=== PATIENT | female | born 1980 | race Caucasian/White ===

== ENCOUNTER 2024-11-26 09:50 | Emergency (ER) | payer BC ==
--- OUTSIDE RECORDS SUMMARY | 2024-11-26 09:56 | XMS REPORT | Continuity of Care Document ---
Author Name Unknown Address [address] [facility]. [address] [place] [address] [facility] Address [address] [facility]. [address] [place] [address] Care Team Providers Care Upholstery Cutter Name Role Phone ARCELIA LEES Primary Care Physician Unavailab ARCELIA Juan Attending Clinician Unavailable Arcelia Lees MD Attending Clinician [phone] MYAH KOCH Attending Clinician Unavailable Myah Guadalupe Attending Clinician [phone] Unknown, Attending Attending Clinician Unavailab VALERIE Sahu Attending Clinician UnavailValerie Fonseca Attending Clinician [phone] ELY JOY Attending Clinician Unavailable ELY JOY Attending Clinician Unavailable Arcelia Lees MD Attending Clinician [phone] VINI RAND Attending Clinician Yesica Vini Wilson MD Attending Clinician SARANYA MORGAN Attending Clinician Unavailable Saranya Freeman Attending Clinician [phone] Juanis Steele PA-C Attending Clinician [phone] JUANIS STEELE Attending Clinician Unavailable Ezra Cruz MD Attending Clinician [phone] EZRA CRUZ Attending Clinician Unavail able LE DOUX, ELBERT Attending Clinician Unavailable Le Doux FNPC, Elbert Attending Clinician [phone] Unknown, Attending Attending Clinician Unavailab le Doctor Unassigned, [place] Attending Clinician U Dago Umaña MD Attending Clinician [phone] DAGO PRIEST Attending Clinician Unavailable KVNGCYNTHIA GONGORA Attending Clinician Unavailab ABHISHEK Vuong Attending Clinician Unavailabl e Reilly PREMIUM CANCELLATION CLERK, Abhishek Attending Clinician [phone] Cynthia Calderon DNP Attending Clinician [phone] Maribell Veras RN Attending Clinician Unavaila ble Only, [facility] Main Test Attending Clinician Unavaila Summer Gonsalves MD Attending Clinician [phone] SUMMER TEMPLE Attending Clinician Unavailable Only, Laura Uc Test Attending Clinician Unavailpacheco almanzar Nurse, Laura Cbc Pedi Attending Clinician Unavaila ble Cochran PREMIUM CANCELLATION CLERK, Love Attending Clinician [phone] UNKNOWN, ATTENDING Attending Clinician Unavailab le Only, [facility] Uc Test Attending Clinician UnavailLINSEY Porter Attending Clinician Yesica vailable Linsey Chiu MD Attending Clinician Fco CLOTH EXAMINER, Francoise Houston Attending Clinician [phone] Care, Laura Urgent Attending Clinician Unavailable Clari MCGINNIS, Leida Carrera Attending Clinician [phone] Srinath WORKMAN, Amelia Wallace Attending Clinician Unavaila BLAINE Paez Attending Clinician Unav ailable Cynthia FARLEY, Blaine Attending Clinician + ARCELIA LEES Admitting Clinician Unavailable ELY JOY Admitting Clinician Unavailable EZRA CRUZ Admitting Clinician Unavail able DAGO PRIEST Admitting Clinician Unavailable Dago Priest MD Admitting Clinician [phone] Payers Payer Name Policy Type Policy Number Effective Date Expirati on Date Source [facility] [id number] 2017 00:00:00 Problems Condition Name Condition Details Condition Category Status Onset Date Resolution Date Last Treatment Date Treating Clinician Comments Source S/P laparoscop ic hysterecto my S/P laparoscop ic hysterecto my Disease Active 6-30 00:00: 00 [facility] Obesity (BMI 30-39.9) Obesity (BMI 30-39.9) Disease Active 6-29 00:00: 00 [facility] Abnormal uterine bleeding (AUB) Abnormal uterine bleeding (AUB) Disease Active 6-15 00:00: 00 Overview: Formattin g of this note might be different from the original. Added automatic ally from request for surgery [id number] 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 Allergic rhinitis Allergic rhinitis Disease Active 03-18 00:00: 00 [facility] Diabetes mellitus Diabetes mellitus Disease Active 03-18 00:00: 00 [facility] Vitamin D deficiency , unspecifie d Vitamin D deficiency , unspecifie d Disease Active 03-18 00:00: 00 [facility] Nicotine dependence Nicotine dependence Disease Active 03-18 00:00: 00 Overview: Formattin g of this note might be different from the original. -Strongly encourage d to stop smoking [facility] Menorrhagi a Menorrhagi a Disease Active 03-18 00:00: 00 [facility] FHx: melanoma FHx: melanoma Disease Active 2017-10 00:00: 00 [facility] H/O basal cell carcinoma excision H/O basal cell carcinoma excision Disease Active 2017-10 00:00: 00 [facility] Idiopathic peripheral neuropathy Idiopathic peripheral neuropathy Disease Active 2017-10 00:00: 00 [facility] Peripheral neuralgia Peripheral neuralgia Disease Active 2017-10 00:00: 00 [facility] Hyperlipid emia, unspecifie d hyperlipid emia type Hyperlipid emia, unspecifie d hyperlipid emia type Disease Active 12-25 00:00: 00 [facility] Type 2 diabetes mellitus without complicati on, without long-term current use of insulin Type 2 diabetes mellitus without complicati on, without long-term current use of insulin Disease Active 11-23 00:00: 00 [facility] Acne, unspecifie d acne type Acne, unspecifie d acne type Disease Active 11-23 00:00: 00 [facility] Other specified hypothyroi dism Other specified hypothyroi dism Disease Active 11-23 00:00: 00 [facility] Allergic rhinitis due to pollen, unspecifie d chronicity , unspecifie d seasonalit y Allergic rhinitis due to pollen, unspecifie d chronicity , unspecifie d seasonalit y Disease Active 11-23 00:00: 00 [facility] Gastroesop hageal reflux disease, esophagiti s presence not specified Gastroesop hageal reflux disease, esophagiti s presence not specified Disease Active 11-23 00:00: 00 [facility] Snapping jaw Snapping jaw Disease Resolve d 5-28 00:00: 00 2020-09-20 00:00:00 2020-09-20 08:27:37 [facility] Smoker Smoker Disease Resolve d 11-23 00:00: 00 2018-09-25 00:00:00 2018-09-25 08:55:37 [facility] Allergies, Adverse Reactions, Alerts Allergy Name Allergy Type Status Severity Reaction(s) Onset Date Inactive Date Treating Clinician Comments Source Metformi n Propensi ty to adverse reaction s Active Unknown - See comments 2022-10 00:00: 00 [facility] Pertussi s Vaccines Propensi ty to adverse reaction s Active Unknown - See comments 2022-10 00:00: 00 [facility] PERTUSS S VACCINES Drug Class Active High Unknown-Cmnt 2022-10 00:00: 00 [facility] METFORMI N DRUG INGREDI Active Unknown-Cmnt 2022-10 00:00: 00 [facility] METFORMI N DRUG INGREDI Active Diarrhea 03-26 00:00: 00 [facility] Metformi n Propensi ty to adverse reaction s Active Diarrhea 03-26 00:00: 00 [facility] Pertussi s Vaccines Drug Allergy Active Anaphylaxis [facility] NO KNOWN ALLERGIE S Drug Class Active [facility] Pertussi s Vaccines Drug Allergy Active Anaphylaxis [facility] Social History Social Habit Start Date Stop Date Quantity Comments Source [facility] Alcoholic beverage intake 2024-10-20 00:00:00 2024-10-20 00:00:00 Current non-drinker of alcohol (finding) [facility] Tobacco use and exposure 2024-07-21 00:00:00 2024-07-21 00:00:00 Former smokeless tobacco user [facility] History of Social function 2024-07-21 00:00:00 2024-07-21 00:00:00 [facility] Alcohol intake 2024-01-03 00:00:00 2024-01-03 00:00:00 Current non-drinker of alcohol (finding) [facility] Exposure to SARS-CoV-2 (event) 2022-12-23 00:00:00 2023-01-02 08:31:00 Not sure [facility] Tobacco Comment 2022-05-02 00:00:00 2022-05-02 00:00:00 still vaping intemittently [facility] History of tobacco use 2018-06-26 00:00:00 Passive smoker [facility] Sex assigned at 1980 00:00:00 1980 00:00:00 [facility] Smoking Status Start Date Stop Date Source Tobacco smoking consumption unknown [facility] Ex-smoker 2024-07-21 00:00:00 2024-07-21 00:00:00 [facility] Medications Ordered Medication Name Filled Medication Name Start Date Stop Date Current Medication? Ordering Clinician Indication Dosage Frequency Signature (SIG) Comments Components Source hydrOXYzine 25 mg tablet 2023-10 00:00: 00 Yes [id number] 25mg Take 1 tablet by mouth every 8 (eight) hours as needed for Itching. [facility] triamcinolo ne acetonide 0.1 % cream 2023-10 00:00: 00 Yes [id number] Apply to area(s) 2 (two) times daily. [facility] levothyroxi ne 88 mcg tablet 2023-10 00:00: 00 Yes [id number] 88ug Take 1 tablet by mouth every morning. [facility] dulaglutide (TRULICITY) 1.5 mg/0.5 mL PnIj 07-21 00:00: 00 Yes [id number] 1.5mg inject 1 Pen under the skin weekly. [facility] HYDROcodone -acetaminop hen (NORCO 5) 5-325 mg tablet 1 tablet 05-09 20:00: 00 05-09 19:04 :00 No 1{tbl} 1 tablet, Oral, ONCE, 1 dose, On Sun05/09/24 at 1500, ARGELIA [facility] ibuprofen (IBU) tablet 600 mg 05-09 19:30: 00 05-09 21:05 :00 No 600mg 600 mg, Oral, ONCE, 1 dose, On Sun05/09/24 at 1430, ARGELIA [facility] dulaglutide (TRULICITY) 0.75 mg/0.5 mL PnIj 02-11 00:00: 00 07-21 00:00 :00 No [id number] .75mg inject 1 Pen under the skin weekly. [facility] dulaglutide (TRULICITY) 0.75 mg/0.5 mL PnIj 02-10 00:00: 00 02-11 00:00 :00 No [id number] .75mg inject 1 Pen under the skin weekly. [facility] atorvastati n 20 mg tablet 3-14 00:00: 00 Yes [id number] 20mg Take 1 tablet by mouth at bedtime. [facility] levothyroxi ne 75 mcg tablet 01-02 00:00: 00 07-24 00:00 :00 No [id number] 75ug Take 1 tablet by mouth every morning. [facility] dulaglutide (TRULICITY) 1.5 mg/0.5 mL PnIj 01-02 00:00: 00 02-11 00:00 :00 No [id number] 1.5mg inject 1 Pen under the skin weekly. [facility] bromphenira mine-pseudo ephedrine-D M (BROMFED DM) 2-30-10 mg/5 mL syrup 12-07 00:00: 00 01-02 00:00 :00 No [id number] Take 5 to 10 ml po qid prn cough and congestion [facility] methylPREDN ISolone 4 mg tablets 12-07 00:00: 00 12-14 05:59 :00 No [id number] 84mg Take 21 tablets by mouth SEE-INSTRU CTIONS for 6 days. follow package directions [facility] glipiZIDE 5 mg tablet 11-28 00:00: 00 07-21 00:00 :00 No [id number] 5mg Take 1 tablet by mouth in the morning. [facility] dulaglutide (TRULICITY) 0.75 mg/0.5 mL PnIj 11-28 00:00: 00 01-02 00:00 :00 No [id number] INJECT THE CONTENTS OF ONE PEN SUBCUTANEO USLY WEEKLY DIRECTED [facility] atorvastati n 20 mg tablet 11-28 00:00: 00 01-02 00:00 :00 No [id number] 20mg Take 1 tablet by mouth at bedtime. [facility] levothyroxi ne 75 mcg tablet 2- 00:00: 00 01-02 00:00 :00 No [id number] 75ug Take 1 tablet by mouth every morning. [facility] cranberry fruit extract (CRANBERRY CONCENTRATE ORAL) 10-25 11:50: 48 Yes Take by mouth. [facility] amoxicillin -clavulanat e (AUGMENTIN) 875-125 mg per tablet 10-25 00:00: 00 11-05 05:59 :00 No [id number] 1{tbl} Take 1 tablet by mouth in the morning and 1 tablet in the evening. Do all this for [address] [facility] phenazopyri dine (PYRIDIUM) 200 mg tablet 10-25 00:00: 00 10-28 05:59 :00 No [id number] 200mg Take 1 tablet by mouth in the morning and 1 tablet at noon and 1 tablet in the evening. Take after meals. Do all this for [address] [facility] TRULICITY 0.75 mg/0.5 mL PnIj 10-23 00:00: 00 11-28 00:00 :00 No [id number] INJECT THE CONTENTS OF ONE PEN SUBCUTANEO USLY WEEKLY DIRECTED [facility] fluticasone propionate 50 mcg/actuati on nasal spray 2022-10 00:00: 00 10-25 00:00 :00 No [id number] 1{spray } Use 1 Paguate in each nostril in the morning. [facility] benzonatate 200 mg capsule 2022-10 00:00: 00 10-19 05:59 :00 No [id number] 200mg Take 1 capsule by mouth 3 (three) times daily as needed for Cough for up to [address] [facility] oseltamivir 75 mg capsule 2022-10 00:00: 00 10-14 05:59 :00 No [id number] 75mg Take 1 capsule by mouth in the morning and 1 capsule in the evening. Do all this for [address] [facility] calcium carbonate/v itamin D3 (VITAMIN D-3 ORAL) 2022-10 09:52: 52 Yes Take by mouth. [facility] cetirizine 10 mg tablet 2022-10 09:52: 51 Yes [id number] 10mg Take 10 mg by mouth daily. [facility] cranberry fruit extract (CRANBERRY CONCENTRATE ORAL) 2022-10 09:52: 51 Yes Take by mouth. [facility] cefTRIAXone (ROCEPHIN) 1,000 mg in NaCl 0.9% (NS) 100 mL MINI-BAG 2022-10 02:30: 00 10-04 03:33 :00 No 1000mg 1,000 mg, IV Piggyback, ONCE, 1 dose, On Sun10/03/23 at 2030, Administer over 30 Minutes, 100 mL
Reas on for Anti-Infec tive: Documented Infection< br>Documen elvis Infection Site: Urine
D uration of Therapy: Other (see Comments) [facility] ketorolac (TORADOL) injection 30 mg 2022-10 02:15: 00 10-04 01:38 :00 No 30mg 30 mg, Slow IV Push, ONCE, 1 dose, On Sun10/03/23 at 2015, Routine [facility] NaCl 0.9% (NS) bolus infusion 1,000 mL 2022-10 01:30: 00 10-04 03:00 :00 No 1000mL at 999 mL/hr, 1,000 mL, IV Infusion, ONCE, 1 dose, On Sun10/03/23 at 1930, STAT [facility] metoclopram kristina HCl (REGLAN) injection 10 mg 2022-10 01:30: 00 10-04 01:41 :00 No 10mg 10 mg, Slow IV Push, ONCE, 1 dose, On Sun10/03/23 at 1930, ARGELIA [facility] cefdinir 300 mg capsule 2022-10 00:00: 00 10-25 00:00 :00 No [id number] 300mg Take 1 capsule by mouth every 12 (twelve) hours. [facility] metoclopram kristina HCl 10 mg tablet 2022-10 00:00: 00 10-25 00:00 :00 No [id number] 10mg Take 1 tablet by mouth every 6 (six) hours as needed for Nausea and Vomiting (N/V). [facility] phenazopyri dine 200 mg tablet 2022-10 00:00: 00 10-25 00:00 :00 No [id number] 200mg Take 1 tablet by mouth in the morning and 1 tablet at noon and 1 tablet in the evening. [facility] calcium carbonate/v itamin D3 (VITAMIN D-3 ORAL) 2022-10 17:51: 43 Yes Take by mouth. [facility] metoclopram kristina HCl 10 mg tablet 2022-10 00:00: 00 Yes [id number] 10mg Take 1 tablet by mouth every 6 (six) hours as needed for Nausea and Vomiting (N/V). [facility] phenazopyri dine 200 mg tablet 2022-10 00:00: 00 Yes [id number] 200mg Take 1 tablet by mouth in the morning and 1 tablet at noon and 1 tablet in the evening. [facility] tamsulosin (FLOMAX) 0.4 mg 24 hr capsule 2022-10 00:00: 00 10-03 00:00 :00 No [id number] .4mg Take 1 capsule by mouth in the morning for [address] [facility] cephALEXin 500 mg capsule 2022-10 00:00: 00 10-03 00:00 :00 No [id number] 500mg Take 1 capsule by mouth 4 (four) times daily for [address] [facility] atorvastati n 20 mg tablet 07-05 00:00: 00 11-28 00:00 :00 No [id number] 20mg Take 1 tablet by mouth at bedtime. [facility] glipiZIDE 5 mg tablet 07-05 00:00: 00 11-28 00:00 :00 No [id number] 5mg Take 1 tablet by mouth in the morning. [facility] levothyroxi ne 75 mcg tablet 07-05 00:00: 00 11-28 00:00 :00 No [id number] 75ug Take 1 tablet by mouth every morning. [facility] TRULICITY 0.75 mg/0.5 mL Ij 12-01 00:00: 00 10-23 00:00 :00 No [id number] INJECT THE CONTENTS OF ONE PEN SUBCUTANEO USLY WEEKLY DIRECTED [facility] calcium carbonate/v itamin D3 (VITAMIN D-3 ORAL) 10-23 08:41: 43 Yes Take by mouth. [facility] ergocalcife rol, vitamin D2, (VITAMIN D2 ORAL) 10-23 08:41: 24 10-23 00:00 :00 No Take by mouth. [facility] GLIPIZIDE 5 mg tablet 2021-10 00:00: 00 07-05 00:00 :00 No [id number] 5mg TAKE 1 TABLET BY MOUTH DAILY [facility] dulaglutide (TRULICITY) 0.75 mg/0.5 mL [facility] 2021-10 00:00: 00 12-01 00:00 :00 No [id number] .75mg inject 1 Pen under the skin weekly. [facility] dulaglutide (TRULICITY) 0.75 mg/0.5 mL [facility] 2021-10 00:00: 00 09-20 00:00 :00 No [id number] .75mg inject 1 Pen under the skin weekly. [facility] cetirizine 10 mg tablet 05-02 15:36: 43 Yes [id number] 10mg Take 10 mg by mouth daily. [facility] molnupiravi r 200 mg capsule 05-02 00:00: 00 09-13 00:00 :00 No [id number] 800mg Take 4 capsules by mouth every 12 (twelve) hours. [facility] multivit-mi nerals/ferr ous fum (MULTI VITAMIN ORAL) 04-21 10:27: 59 Yes Take by mouth. [facility] acetaminoph en 325 mg tablet 00:00: 00 04-22 04:59 :00 No [id number] 650mg Take 2 tablets by mouth every 6 (six) hours. [facility] oxyCODONE 5 mg immediate release tablet - 00:00: 00 09-13 00:00 :00 No [id number] 5mg Take 1 tablet by mouth every 4 (four) hours as needed for Pain (scale 4-6) for up to 10 doses. Indication s: acute pain [facility] sennosides- docusate sodium 8.6-50 mg per tablet 04-21 00:00: 00 09-13 00:00 :00 No [id number] 1{tbl} Take 1 tablet by mouth daily. [facility] simethicone 80 mg chewable tablet 04-21 00:00: 00 09-13 00:00 :00 No [id number] 80mg Take 1 tablet by mouth after meals and at bedtime. [facility] ibuprofen 600 mg tablet 04-21 00:00: 00 09-13 00:00 :00 No [id number] 600mg Take 1 tablet by mouth every 6 (six) hours. [facility] gabapentin 300 mg capsule 04-21 00:00: 00 09-13 00:00 :00 No [id number] 300mg Take 1 capsule by mouth 3 (three) times daily. [facility] ibuprofen 600 mg tablet 04-20 00:00: 00 09-13 00:00 :00 No [id number] 600mg Take 1 tablet by mouth every 6 (six) hours as needed for Pain (scale 4-6). [facility] simethicone 80 mg chewable tablet 04-20 00:00: 00 09-13 00:00 :00 No [id number] 80mg Take 1 tablet by mouth after meals and at bedtime. [facility] sennosides- docusate sodium 8.6-50 mg per tablet 04-20 00:00: 00 09-13 00:00 :00 No [id number] 1{tbl} Take 1 tablet by mouth daily. [facility] ondansetron 4 mg tablet 04-20 00:00: 00 09-13 00:00 :00 No [id number] 4mg Take 1 tablet by mouth every 8 (eight) hours as needed for Nausea and Vomiting (N/V). [facility] atorvastati n 20 mg tablet 03-24 00:00: 00 07-05 00:00 :00 No [id number] 20mg Take 1 tablet by mouth at bedtime. [facility] levothyroxi ne 75 mcg tablet 03-24 00:00: 00 07-05 00:00 :00 No [id number] 75ug Take 1 tablet by mouth every morning. [facility] amitriptyli ne 10 mg tablet 2020-10 00:00: 00 07-05 00:00 :00 No [id number] 10mg Take 1 tablet by mouth at bedtime. [facility] glipiZIDE 5 mg tablet 2020-10 00:00: 00 10-02 00:00 :00 No [id number] 5mg Take 1 tablet by mouth daily. [facility] Immunizations Ordered Immunization Name Filled Immunization Name Date Status Comments Source Influenza, adjuvanted, trivalent, PF (FLUAD) 2024-07-21 00:00:00 Completed Influenza, adjuvanted, trivalent, PF (FLUAD) 2024-07-21 00:00:00 Completed Influenza, adjuvanted, trivalent, PF (FLUAD) 2024-07-21 00:00:00 Completed Influenza, adjuvanted, trivalent, PF (FLUAD) 2024-07-21 00:00:00 Completed Influenza, adjuvanted, trivalent, PF (FLUAD) 2024-07-21 00:00:00 Completed TD Pres-Free 2024-05-09 00:00:00 Completed [facility] TD Pres-Free 2024-05-09 00:00:00 Completed [facility] TD Pres-Free 2024-05-09 00:00:00 Completed [facility] TD Pres-Free 2024-05-09 00:00:00 Completed [facility] TD Pres-Free 2024-05-09 00:00:00 Completed [facility] Influenza Virus Vaccine Quad IM, Preserv and ABX Free 6 MO-64 YRS (FLUCELVAX) 2022-10-23 00:00:00 Completed Influenza Virus Vaccine Quad IM, Preserv and ABX Free 6 MO-64 YRS (FLUCELVAX) 2022-10-23 00:00:00 Completed Influenza Virus Vaccine Quad IM, Preserv and ABX Free 6 MO-64 YRS (FLUCELVAX) 2022-10-23 00:00:00 Completed Influenza Virus Vaccine Quad IM, Preserv and ABX Free 6 MO-64 YRS (FLUCELVAX) 2022-10-23 00:00:00 Completed Influenza Virus Vaccine Quad IM, Preserv and ABX Free 6 MO-64 YRS (FLUCELVAX) 2022-10-23 00:00:00 Completed Influenza Virus Vaccine Quad IM, Preserv and ABX Free 6 MO-64 YRS 2022-10-23 00:00:00 Completed [facility] Influenza Virus Vaccine Quad IM, Preserv and ABX Free 6 MO-64 YRS 2022-10-23 00:00:00 Completed [facility] Influenza Virus Vaccine Quad IM, Preserv and ABX Free 6 MO-64 YRS 2022-10-23 00:00:00 Completed [facility] Influenza Virus Vaccine Quad IM, Preserv and ABX Free 6 MO-64 YRS (FLUCELVAX) 2022-10-23 00:00:00 Completed [facility] Influenza Virus Vaccine Quad IM, Preserv and ABX Free 6 MO-64 YRS (FLUCELVAX) 2021-09-23 00:00:00 Completed SARS-COV-2 COVID-19 MODERNA 0.25ML BOOSTER VACCINE 2021-09-23 00:00:00 Completed Influenza Virus Vaccine Quad IM, Preserv and ABX Free 6 MO-64 YRS (FLUCELVAX) 2021-09-23 00:00:00 Completed SARS-COV-2 COVID-19 MODERNA 0.25ML BOOSTER VACCINE 2021-09-23 00:00:00 Completed Influenza Virus Vaccine Quad IM, Preserv and ABX Free 6 MO-64 YRS (FLUCELVAX) 2021-09-23 00:00:00 Completed SARS-COV-2 COVID-19 MODERNA 0.25ML BOOSTER VACCINE 2021-09-23 00:00:00 Completed Influenza Virus Vaccine Quad IM, Preserv and ABX Free 6 MO-64 YRS (FLUCELVAX) 2021-09-23 00:00:00 Completed SARS-COV-2 COVID-19 MODERNA 0.25ML BOOSTER VACCINE 2021-09-23 00:00:00 Completed Influenza Virus Vaccine Quad IM, Preserv and ABX Free 6 MO-64 YRS (FLUCELVAX) 2021-09-23 00:00:00 Completed SARS-COV-2 COVID-19 MODERNA 0.25ML BOOSTER VACCINE 2021-09-23 00:00:00 Completed Influenza Virus Vaccine Quad IM, Preserv and ABX Free 6 MO-64 YRS 2021-09-23 00:00:00 Completed [facility] SARS-COV-2 COVID-19 MODERNA 0.25ML BOOSTER VACCINE 2021-09-23 00:00:00 Completed [facility] Influenza Virus Vaccine Quad IM, Preserv and ABX Free 6 MO-64 YRS 2021-09-23 00:00:00 Completed [facility] SARS-COV-2 COVID-19 MODERNA 0.25ML BOOSTER VACCINE 2021-09-23 00:00:00 Completed [facility] Influenza Virus Vaccine Quad IM, Preserv and ABX Free 6 MO-64 YRS 2021-09-23 00:00:00 Completed [facility] SARS-COV-2 COVID-19 MODERNA 0.25ML BOOSTER VACCINE 2021-09-23 00:00:00 Completed [facility] Influenza Virus Vaccine Quad IM, Preserv and ABX Free 6 MO-64 YRS 2021-09-23 00:00:00 Completed [facility] SARS-COV-2 COVID-19 MODERNA 0.25ML BOOSTER VACCINE 2021-09-23 00:00:00 Completed [facility] Influenza Virus Vaccine Quad IM, Preserv and ABX Free 6 MO-64 YRS 2021-09-23 00:00:00 Completed [facility] SARS-COV-2 COVID-19 MODERNA 0.25ML BOOSTER VACCINE 2021-09-23 00:00:00 Completed [facility] Influenza Virus Vaccine Quad IM, Preserv and ABX Free 6 MO-64 YRS 2021-09-23 00:00:00 Completed [facility] SARS-COV-2 COVID-19 MODERNA 0.25ML BOOSTER VACCINE 2021-09-23 00:00:00 Completed [facility] Influenza Virus Vaccine Quad IM, Preserv and ABX Free 6 MO-64 YRS 2021-09-23 00:00:00 Completed [facility] SARS-COV-2 COVID-19 MODERNA 0.25ML BOOSTER VACCINE 2021-09-23 00:00:00 Completed [facility] Influenza Virus Vaccine Quad IM, Preserv and ABX Free 6 MO-64 YRS 2021-09-23 00:00:00 Completed [facility] SARS-COV-2 COVID-19 MODERNA 0.25ML BOOSTER VACCINE 2021-09-23 00:00:00 Completed [facility] Influenza Virus Vaccine Quad IM, Preserv and ABX Free 6 MO-64 YRS 2021-09-23 00:00:00 Completed [facility] SARS-COV-2 COVID-19 MODERNA 0.25ML BOOSTER VACCINE 2021-09-23 00:00:00 Completed [facility] Influenza Virus Vaccine Quad IM, Preserv and ABX Free 6 MO-64 YRS 2021-09-23 00:00:00 Completed [facility] SARS-COV-2 COVID-19 MODERNA 0.25ML BOOSTER VACCINE 2021-09-23 00:00:00 Completed [facility] Influenza Virus Vaccine Quad IM, Preserv and ABX Free 6 MO-64 YRS (FLUCELVAX) 2021-09-23 00:00:00 Completed [facility] SARS-COV-2 COVID-19 MODERNA 0.25ML BOOSTER VACCINE 2021-09-23 00:00:00 Completed [facility] SARS-COV-2 COVID-19 MODERNA 12+ YRS VACCINE 2021-01-30 00:00:00 Completed SARS-COV-2 COVID-19 MODERNA 12+ YRS VACCINE 2021-01-30 00:00:00 Completed SARS-COV-2 COVID-19 MODERNA 12+ YRS VACCINE 2021-01-30 00:00:00 Completed SARS-COV-2 COVID-19 MODERNA 12+ YRS VACCINE 2021-01-30 00:00:00 Completed SARS-COV-2 COVID-19 MODERNA 12+ YRS VACCINE 2021-01-30 00:00:00 Completed SARS-COV-2 COVID-19 MODERNA VACCINE 2021-01-30 00:00:00 Completed [facility] SARS-COV-2 COVID-19 MODERNA 12+ YRS VACCINE 2021-01-30 00:00:00 Completed [facility] SARS-COV-2 COVID-19 MODERNA 12+ YRS VACCINE 2021-01-30 00:00:00 Completed [facility] SARS-COV-2 COVID-19 MODERNA 12+ YRS VACCINE 2021-01-30 00:00:00 Completed [facility] SARS-COV-2 COVID-19 MODERNA 12+ YRS VACCINE 2021-01-30 00:00:00 Completed [facility] SARS-COV-2 COVID-19 MODERNA 12+ YRS VACCINE 2021-01-30 00:00:00 Completed [facility] SARS-COV-2 COVID-19 MODERNA 12+ YRS VACCINE 2021-01-30 00:00:00 Completed [facility] SARS-COV-2 COVID-19 MODERNA 12+ YRS VACCINE 2021-01-30 00:00:00 Completed [facility] SARS-COV-2 COVID-19 MODERNA 12+ YRS VACCINE 2021-01-30 00:00:00 Completed [facility] SARS-COV-2 COVID-19 MODERNA 12+ YRS VACCINE 2021-01-30 00:00:00 Completed [facility] SARS-COV-2 COVID-19 MODERNA 12+ YRS VACCINE 2021-01-30 00:00:00 Completed [facility] SARS-COV-2 COVID-19 MODERNA 12+ YRS VACCINE 2021-01-02 00:00:00 Completed SARS-COV-2 COVID-19 MODERNA 12+ YRS VACCINE 2021-01-02 00:00:00 Completed SARS-COV-2 COVID-19 MODERNA 12+ YRS VACCINE 2021-01-02 00:00:00 Completed SARS-COV-2 COVID-19 MODERNA 12+ YRS VACCINE 2021-01-02 00:00:00 Completed SARS-COV-2 COVID-19 MODERNA 12+ YRS VACCINE 2021-01-02 00:00:00 Completed SARS-COV-2 COVID-19 MODERNA VACCINE 2021-01-02 00:00:00 Completed [facility] SARS-COV-2 COVID-19 MODERNA 12+ YRS VACCINE 2021-01-02 00:00:00 Completed [facility] SARS-COV-2 COVID-19 MODERNA 12+ YRS VACCINE 2021-01-02 00:00:00 Completed [facility] SARS-COV-2 COVID-19 MODERNA 12+ YRS VACCINE 2021-01-02 00:00:00 Completed [facility] SARS-COV-2 COVID-19 MODERNA 12+ YRS VACCINE 2021-01-02 00:00:00 Completed [facility] SARS-COV-2 COVID-19 MODERNA 12+ YRS VACCINE 2021-01-02 00:00:00 Completed [facility] SARS-COV-2 COVID-19 MODERNA 12+ YRS VACCINE 2021-01-02 00:00:00 Completed [facility] SARS-COV-2 COVID-19 MODERNA 12+ YRS VACCINE 2021-01-02 00:00:00 Completed [facility] SARS-COV-2 COVID-19 MODERNA 12+ YRS VACCINE 2021-01-02 00:00:00 Completed [facility] SARS-COV-2 COVID-19 MODERNA 12+ YRS VACCINE 2021-01-02 00:00:00 Completed [facility] SARS-COV-2 COVID-19 MODERNA 12+ YRS VACCINE 2021-01-02 00:00:00 Completed [facility] Influenza Virus Vaccine Quad .5 mL IM 6+ MO (FLUZONE/FLULAVAL/F LUARIX) 2020-08-03 00:00:00 Completed [facility] Influenza Virus Vaccine Quad .5 mL IM 6+ MO (FLUZONE/FLULAVAL/F LUARIX) 2020-08-03 00:00:00 Completed [facility] Influenza Virus Vaccine Quad .5 mL IM 6+ MO (FLUZONE/FLULAVAL/F LUARIX) 2020-08-03 00:00:00 Completed [facility] Influenza Virus Vaccine Quad .5 mL IM 6+ MO (FLUZONE/FLULAVAL/F LUARIX) 2020-08-03 00:00:00 Completed [facility] Influenza Virus Vaccine Quad .5 mL IM 6+ MO (FLUZONE/FLULAVAL/F LUARIX) 2020-08-03 00:00:00 Completed [facility] Influenza Virus Vaccine Quad .5 mL IM 6+ MO 2020-08-03 00:00:00 Completed [facility] Influenza Virus Vaccine Quad .5 mL IM 6+ MO 2020-08-03 00:00:00 Completed [facility] Influenza Virus Vaccine Quad .5 mL IM 6+ MO 2020-08-03 00:00:00 Completed [facility] Influenza Virus Vaccine Quad .5 mL IM 6+ MO 2020-08-03 00:00:00 Completed [facility] Influenza Virus Vaccine Quad .5 mL IM 6+ MO 2020-08-03 00:00:00 Completed [facility] Influenza Virus Vaccine Quad .5 mL IM 6+ MO 2020-08-03 00:00:00 Completed [facility] Influenza Virus Vaccine Quad .5 mL IM 6+ MO 2020-08-03 00:00:00 Completed [facility] Influenza Virus Vaccine Quad .5 mL IM 6+ MO 2020-08-03 00:00:00 Completed [facility] Influenza Virus Vaccine Quad .5 mL IM 6+ MO 2020-08-03 00:00:00 Completed [facility] Influenza Virus Vaccine Quad .5 mL IM 6+ MO 2020-08-03 00:00:00 Completed [facility] Influenza Virus Vaccine Quad .5 mL IM 6+ MO (FLUZONE/FLULAVAL/F LUARIX) 2020-08-03 00:00:00 Completed [facility] Influenza Virus Vaccine Quad .5 mL IM 6+ MO (FLUZONE/FLULAVAL/F LUARIX) 2019-08-26 00:00:00 Completed [facility] Influenza Virus Vaccine Quad .5 mL IM 6+ MO (FLUZONE/FLULAVAL/F LUARIX) 2019-08-26 00:00:00 Completed [facility] Influenza Virus Vaccine Quad .5 mL IM 6+ MO (FLUZONE/FLULAVAL/F LUARIX) 2019-08-26 00:00:00 Completed [facility] Influenza Virus Vaccine Quad .5 mL IM 6+ MO (FLUZONE/FLULAVAL/F LUARIX) 2019-08-26 00:00:00 Completed [facility] Influenza Virus Vaccine Quad .5 mL IM 6+ MO (FLUZONE/FLULAVAL/F LUARIX) 2019-08-26 00:00:00 Completed [facility] Influenza Virus Vaccine Quad .5 mL IM 6+ MO 2019-08-26 00:00:00 Completed [facility] Influenza Virus Vaccine Quad .5 mL IM 6+ MO 2019-08-26 00:00:00 Completed [facility] Influenza Virus Vaccine Quad .5 mL IM 6+ MO 2019-08-26 00:00:00 Completed [facility] Influenza Virus Vaccine Quad .5 mL IM 6+ MO 2019-08-26 00:00:00 Completed [facility] Influenza Virus Vaccine Quad .5 mL IM 6+ MO 2019-08-26 00:00:00 Completed [facility] Influenza Virus Vaccine Quad .5 mL IM 6+ MO 2019-08-26 00:00:00 Completed [facility] Influenza Virus Vaccine Quad .5 mL IM 6+ MO 2019-08-26 00:00:00 Completed [facility] Influenza Virus Vaccine Quad .5 mL IM 6+ MO 2019-08-26 00:00:00 Completed [facility] Influenza Virus Vaccine Quad .5 mL IM 6+ MO 2019-08-26 00:00:00 Completed [facility] Influenza Virus Vaccine Quad .5 mL IM 6+ MO 2019-08-26 00:00:00 Completed [facility] Influenza Virus Vaccine Quad .5 mL IM 6+ MO (FLUZONE/FLULAVAL/F LUARIX) 2019-08-26 00:00:00 Completed [facility] Influenza Virus Vaccine Quad IM 3+ YRS 2018-09-26 00:00:00 Completed Influenza Virus Vaccine Quad IM 3+ YRS 2018-09-26 00:00:00 Completed Influenza Virus Vaccine Quad IM 3+ YRS 2018-09-26 00:00:00 Completed Influenza Virus Vaccine Quad IM 3+ YRS 2018-09-26 00:00:00 Completed Influenza Virus Vaccine Quad IM 3+ YRS 2018-09-26 00:00:00 Completed Influenza Virus Vaccine Quad IM 3+ YRS 2018-09-26 00:00:00 Completed [facility] Influenza Virus Vaccine Quad IM 3+ YRS 2018-09-26 00:00:00 Completed [facility] Influenza Virus Vaccine Quad IM 3+ YRS 2018-09-26 00:00:00 Completed [facility] Influenza Virus Vaccine Quad IM 3+ YRS 2018-09-26 00:00:00 Completed [facility] Influenza Virus Vaccine Quad IM 3+ YRS 2018-09-26 00:00:00 Completed [facility] Influenza Virus Vaccine Quad IM 3+ YRS 2018-09-26 00:00:00 Completed [facility] Influenza Virus Vaccine Quad IM 3+ YRS 2018-09-26 00:00:00 Completed [facility] Influenza Virus Vaccine Quad IM 3+ YRS 2018-09-26 00:00:00 Completed [facility] Influenza Virus Vaccine Quad IM 3+ YRS 2018-09-26 00:00:00 Completed [facility] Influenza Virus Vaccine Quad IM 3+ YRS 2018-09-26 00:00:00 Completed [facility] Influenza Virus Vaccine Quad IM 3+ YRS 2018-09-26 00:00:00 Completed [facility] Tetanus/Diptheria 2008-07-13 00:00:00 Completed [facility] Tetanus/Diptheria 2008-07-13 00:00:00 Completed [facility] Tetanus/Diptheria 2008-07-13 00:00:00 Completed [facility] Tetanus/Diptheria 2008-07-13 00:00:00 Completed [facility] Tetanus/Diptheria 2008-07-13 00:00:00 Completed [facility] Tetanus/Diptheria 2008-07-13 00:00:00 Completed [facility] Tetanus/Diptheria 2008-07-13 00:00:00 Completed [facility] Tetanus/Diptheria 2008-07-13 00:00:00 Completed [facility] Tetanus/Diptheria 2008-07-13 00:00:00 Completed [facility] Tetanus/Diptheria 2008-07-13 00:00:00 Completed [facility] Tetanus/Diptheria 2008-07-13 00:00:00 Completed Tetanus/Diptheria 2008-07-13 00:00:00 Completed Tetanus/Diptheria 2008-07-13 00:00:00 Completed Tetanus/Diptheria 2008-07-13 00:00:00 Completed Tetanus/Diptheria 2008-07-13 00:00:00 Completed Tetanus/Diptheria 2008-07-13 00:00:00 Completed [facility] Influenza Virus Vaccine Quad IM 3+ YRS Unknown Completed [facility] Tetanus/Diptheria Unknown [facility]-19 MODERNA 12+ YRS VACCINE Unknown Completed [facility] Influenza Virus Vaccine Quad IM, Preserv and ABX Free 6 MO-64 YRS (FLUCELVAX) Unknown Completed [facility] Influenza Virus Vaccine Quad IM 3+ YRS Unknown Completed [facility] Tetanus/Diptheria Unknown [facility] COVID-19 MODERNA 12+ YRS VACCINE Unknown Completed [facility] Influenza Virus Vaccine Quad IM 3+ YRS Unknown Completed [facility] Tetanus/Diptheria Unknown [facility] Vaccine Quad IM 3+ YRS Unknown Completed [facility] Tetanus/Diptheria Unknown [facility] SARS-COV-2 COVID-19 MODERNA 12+ YRS VACCINE Unknown Completed [facility] Influenza Virus Vaccine Quad IM, Preserv and ABX Free 6 MO-64 YRS (FLUCELVAX) Unknown Completed [facility] Influenza Virus Vaccine Quad IM 3+ YRS Unknown Completed [facility] Tetanus/Diptheria Unknown [facility] COVID-19 MODERNA 12+ YRS VACCINE Unknown Completed [facility] Influenza Virus Vaccine Quad IM, Preserv and ABX Free 6 MO-64 YRS (FLUCELVAX) Unknown Completed [facility] Influenza Virus Vaccine Quad IM 3+ YRS Unknown Completed [facility] Tetanus/Diptheria Unknown [facility] COVID-19 MODERNA 12+ YRS VACCINE Unknown Completed [facility] Influenza Virus Vaccine Quad IM, Preserv and ABX Free 6 MO-64 YRS (FLUCELVAX) Unknown Completed [facility] Influenza Virus Vaccine Quad IM 3+ YRS Unknown Completed [facility] Tetanus/Diptheria Unknown [facility] COVID-19 MODERNA 12+ YRS VACCINE Unknown Completed [facility] Influenza Virus Vaccine Quad IM, Preserv and ABX Free 6 MO-64 YRS (FLUCELVAX) Unknown Completed [facility] Influenza Virus Vaccine Quad IM 3+ YRS Unknown Completed [facility] Tetanus/Diptheria Unknown [facility] SARS-COV-2 COVID-19 MODERNA 12+ YRS VACCINE Unknown Completed [facility] Influenza Virus Vaccine Quad IM, Preserv and ABX Free 6 MO-64 YRS (FLUCELVAX) Unknown Completed [facility] Influenza Virus Vaccine Quad IM 3+ YRS Unknown Completed [facility] Tetanus/Diptheria Unknown [facility] COVID-19 MODERNA 12+ YRS VACCINE Unknown Completed [facility] Influenza Virus Vaccine Quad IM, Preserv and ABX Free 6 MO-64 YRS (FLUCELVAX) Unknown Completed [facility] Influenza Virus Vaccine Quad IM 3+ YRS Unknown Completed [facility] Tetanus/Diptheria Unknown [facility] COVID-19 MODERNA 12+ YRS VACCINE Unknown Completed [facility] Influenza Virus Vaccine Quad IM, Preserv and ABX Free 6 MO-64 YRS (FLUCELVAX) Unknown Completed [facility] Influenza Virus Vaccine Quad IM 3+ YRS Unknown Completed [facility] Tetanus/Diptheria Unknown [facility] SARS-COV-2 COVID-19 MODERNA 12+ YRS VACCINE Unknown Completed [facility] Influenza Virus Vaccine Quad IM, Preserv and ABX Free 6 MO-64 YRS (FLUCELVAX) Unknown Completed [facility] Influenza Virus Vaccine Quad IM 3+ YRS Unknown Completed [facility] Tetanus/Diptheria Unknown [facility] COVID-19 MODERNA 12+ YRS VACCINE Unknown Completed [facility] Influenza Virus Vaccine Quad IM, Preserv and ABX Free 6 MO-64 YRS (FLUCELVAX) Unknown Completed [facility] Influenza Virus Vaccine Quad IM 3+ YRS Unknown Completed [facility] Tetanus/Diptheria Unknown Completed Un [facility] SARS-COV-2 COVID-19 MODERNA 12+ YRS VACCINE Unknown Completed [facility] Influenza Virus Vaccine Quad IM, Preserv and ABX Free 6 MO-64 YRS (FLUCELVAX) Unknown Completed [facility] Influenza Virus Vaccine Quad IM 3+ YRS Unknown Completed [facility] Tetanus/Diptheria Unknown Completed Un [facility] SARS-COV-2 COVID-19 MODERNA 12+ YRS VACCINE Unknown Completed [facility] Influenza Virus Vaccine Quad IM, Preserv and ABX Free 6 MO-64 YRS (FLUCELVAX) Unknown Completed [facility] Influenza Virus Vaccine Quad IM 3+ YRS Unknown Completed [facility] Tetanus/Diptheria Unknown [facility] SARS-COV-2 COVID-19 MODERNA 12+ YRS VACCINE Unknown Completed [facility] Influenza Virus Vaccine Quad IM, Preserv and ABX Free 6 MO-64 YRS (FLUCELVAX) Unknown Completed [facility] Influenza Virus Vaccine Quad IM 3+ YRS Unknown Completed [facility] Tetanus/Diptheria Unknown Completed Un [facility] SARS-COV-2 COVID-19 MODERNA 12+ YRS VACCINE Unknown Completed [facility] Influenza Virus Vaccine Quad IM, Preserv and ABX Free 6 MO-64 YRS (FLUCELVAX) Unknown Completed [facility] Influenza Virus Vaccine Quad IM 3+ YRS Unknown Completed [facility] Tetanus/Diptheria Unknown Completed Un [facility] SARS-COV-2 COVID-19 MODERNA 12+ YRS VACCINE Unknown Completed [facility] Influenza Virus Vaccine Quad IM, Preserv and ABX Free 6 MO-64 YRS (FLUCELVAX) Unknown Completed [facility] TD Pres-Free Unknown Completed [facility] Vital Signs Vital Name Observation Time Observation Value Comments S ource Systolic blood pressure 2024-08-09 17:01:00 111 mm[Hg] [facility] Diastolic blood pressure 2024-08-09 17:01:00 72 mm[Hg] [facility] Heart rate 2024-08-09 17:01:00 81 /min [facility] Body temperature 2024-08-09 17:01:00 36.44 Jessica [facility] Respiratory rate 2024-08-09 17:01:00 20 /min [facility] Body weight 2024-08-09 17:01:00 91.3 kg Univ [facility] BMI 2024-08-09 17:01:00 29.72 kg/m2 [facility] Oxygen saturation in Arterial blood by Pulse oximetry 2024-08-09 17:01:00 100 /min [facility] Systolic blood pressure 2024-07-24 23:56:00 106 mm[Hg] [facility] Diastolic blood pressure 2024-07-24 23:56:00 72 mm[Hg] [facility] Heart rate 2024-07-24 23:56:00 82 /min [facility] Body temperature 2024-07-24 23:56:00 36.5 Jessica [facility] Respiratory rate 2024-07-24 23:56:00 16 /min [facility] Body height 2024-07-24 23:56:00 175.3 cm [facility] Body weight 2024-07-24 23:56:00 90.266 kg [facility] BMI 2024-07-24 23:56:00 29.39 kg/m2 [facility] Oxygen saturation in Arterial blood by Pulse oximetry 2024-07-24 23:56:00 97 /min [facility] Systolic blood pressure 2024-07-21 13:03:00 112 mm[Hg] [facility] Diastolic blood pressure 2024-07-21 13:03:00 80 mm[Hg] [facility] Heart rate 2024-07-21 13:03:00 80 /min [facility] Body temperature 2024-07-21 13:03:00 36.22 Jessica [facility] Respiratory rate 2024-07-21 13:03:00 18 /min [facility] Body weight 2024-07-21 13:03:00 90.266 kg [facility] BMI 2024-07-21 13:03:00 29.39 kg/m2 [facility] Systolic blood pressure 2024-05-09 20:56:00 125 mm[Hg] [facility] Diastolic blood pressure 2024-05-09 20:56:00 79 mm[Hg] [facility] Heart rate 2024-05-09 20:56:00 90 /min [facility] Body temperature 2024-05-09 20:56:00 36.56 Jessica [facility] Respiratory rate 2024-05-09 20:56:00 18 /min [facility] Oxygen saturation in Arterial blood by Pulse oximetry 2024-05-09 20:56:00 99 /min [facility] Body height 2024-05-09 18:29:00 175.3 cm [facility] Body weight 2024-05-09 18:29:00 83.008 kg [facility] BMI 2024-05-09 18:29:00 27.02 kg/m2 [facility] Systolic blood pressure 2024-01-03 12:49:00 132 mm[Hg] [facility] Diastolic blood pressure 2024-01-03 12:49:00 70 mm[Hg] [facility] Heart rate 2024-01-03 12:49:00 72 /min [facility] Body temperature 2024-01-03 12:49:00 36.44 Jessica [facility] Respiratory rate 2024-01-03 12:49:00 18 /min [facility] Body weight 2024-01-03 12:49:00 88.905 kg [facility] BMI 2024-01-03 12:49:00 29.80 kg/m2 [facility] Systolic blood pressure 2023-12-07 16:00:00 128 mm[Hg] [facility] Diastolic blood pressure 2023-12-07 16:00:00 66 mm[Hg] [facility] Heart rate 2023-12-07 16:00:00 70 /min [facility] Body temperature 2023-12-07 16:00:00 36.67 Jessica [facility] Respiratory rate 2023-12-07 16:00:00 18 /min [facility] Body weight 2023-12-07 16:00:00 87.998 kg [facility] BMI 2023-12-07 16:00:00 29.50 kg/m2 [facility] Body weight 2023-11-26 14:48:00 87.091 kg [facility] BMI 2023-11-26 14:48:00 29.19 kg/m2 [facility] Systolic blood pressure 2023-10-25 17:50:00 100 mm[Hg] [facility] Diastolic blood pressure 2023-10-25 17:50:00 69 mm[Hg] [facility] Heart rate 2023-10-25 17:50:00 99 /min [facility] Body temperature 2023-10-25 17:50:00 36.44 Jessica [facility] Respiratory rate 2023-10-25 17:50:00 16 /min [facility] Body height 2023-10-25 17:50:00 172.7 cm [facility] Body weight 2023-10-25 17:50:00 87.454 kg [facility] BMI 2023-10-25 17:50:00 29.32 kg/m2 [facility] Oxygen saturation in Arterial blood by Pulse oximetry 2023-10-25 17:50:00 98 /min [facility] Systolic blood pressure 2023-10-08 20:36:00 120 mm[Hg] [facility] Diastolic blood pressure 2023-10-08 20:36:00 80 mm[Hg] [facility] Heart rate 2023-10-08 20:36:00 90 [facility] Body temperature 2023-10-08 20:36:00 37.22 Jessica [facility] Respiratory rate 2023-10-08 20:36:00 18 /min [facility] Body weight 2023-10-08 20:36:00 89.676 kg [facility] BMI 2023-10-08 20:36:00 29.20 kg/m2 [facility] Systolic blood pressure 2023-10-04 06:11:00 106 mm[Hg] [facility] Diastolic blood pressure 2023-10-04 06:11:00 75 mm[Hg] [facility] Heart rate 2023-10-04 06:11:00 76 /min [facility] Body temperature 2023-10-04 06:11:00 36.44 Jessica [facility] Respiratory rate 2023-10-04 06:11:00 18 /min [facility] Oxygen saturation in Arterial blood by Pulse oximetry 2023-10-04 06:11:00 100 /min [facility] Body height 2023-10-04 00:46:00 175.3 cm [facility] Body weight 2023-10-04 00:46:00 81.647 kg [facility] BMI 2023-10-04 00:46:00 26.58 kg/m2 [facility] Heart rate 2023-10-03 23:50:00 83 /min [facility] Body temperature 2023-10-03 23:50:00 36.44 Jessica [facility] Respiratory rate 2023-10-03 23:50:00 18 /min [facility] Body height 2023-10-03 23:50:00 175.3 cm [facility] Body weight 2023-10-03 23:50:00 82.555 kg [facility] BMI 2023-10-03 23:50:00 26.88 kg/m2 [facility] Oxygen saturation in Arterial blood by Pulse oximetry 2023-10-03 23:50:00 100 /min [facility] Systolic blood pressure 2023-07-05 13:56:00 132 mm[Hg] [facility] Diastolic blood pressure 2023-07-05 13:56:00 74 mm[Hg] [facility] Heart rate 2023-07-05 13:56:00 64 /min [facility] Body temperature 2023-07-05 13:56:00 36.06 Jessica [facility] Respiratory rate 2023-07-05 13:56:00 18 /min [facility] Body weight 2023-07-05 13:56:00 85.73 kg [facility] BMI 2023-07-05 13:56:00 27.91 kg/m2 [facility] Systolic blood pressure 2023-01-02 13:48:00 132 mm[Hg] [facility] Diastolic blood pressure 2023-01-02 13:48:00 76 mm[Hg] [facility] Heart rate 2023-01-02 13:48:00 70 /min [facility] Body temperature 2023-01-02 13:48:00 36.33 Jessica [facility] Respiratory rate 2023-01-02 13:48:00 18 /min [facility] Body weight 2023-01-02 13:48:00 92.987 kg [facility] BMI 2023-01-02 13:48:00 30.27 kg/m2 [facility] Systolic blood pressure 2022-10-23 14:40:00 134 mm[Hg] [facility] Diastolic blood pressure 2022-10-23 14:40:00 76 mm[Hg] [facility] Heart rate 2022-10-23 14:40:00 66 /min [facility] Body temperature 2022-10-23 14:40:00 36.33 Jessica [facility] Respiratory rate 2022-10-23 14:40:00 18 /min [facility] Body weight 2022-10-23 14:40:00 94.348 kg [facility] BMI 2022-10-23 14:40:00 30.72 kg/m2 [facility] Systolic blood pressure 2022-09-13 15:03:00 130 mm[Hg] [facility] Diastolic blood pressure 2022-09-13 15:03:00 74 mm[Hg] [facility] Heart rate 2022-09-13 15:03:00 68 /min [facility] Body temperature 2022-09-13 15:03:00 36.5 Jessica [facility] Respiratory rate 2022-09-13 15:03:00 18 /min [facility] Body weight 2022-09-13 15:03:00 92.987 kg [facility] BMI 2022-09-13 15:03:00 30.27 kg/m2 [facility] Systolic blood pressure 2022-05-31 18:51:00 120 mm[Hg] [facility] Diastolic blood pressure 2022-05-31 18:51:00 76 mm[Hg] [place] [facility] Heart rate 2022-05-31 18:51:00 103 /min [facility] Body height 2022-05-31 18:51:00 175.3 cm [facility] Body weight 2022-05-31 18:51:00 92.534 kg [facility] BMI 2022-05-31 18:51:00 30.13 kg/m2 [facility] Procedures Procedure Date / Time Performed Performing Clinician Source XR FOOT <3 VW LEFT 2024-07-25 00:16:25 Elida De Oliveira [facility] FLU VACC(),65+YR,0. 5 ML,IM,ADJUVANTED,TIV(FLU AD) 2024-07-21 13:39:42 Arcelia Lees [facility] XR FOOT 3+ VW RIGHT 2024-05-09 19:35:08 James Joy [facility] POCT MOLECULAR STREP 2023-12-07 16:09:00 Arcelia Lees [facility] POCT URINALYSIS 2023-10-25 18:43:00 [facility] POCT MOLECULAR FLU 2023-10-08 20:45:00 Juanis Steele [facility] CT ABDOMEN PELVIS WO CONTRAST 2023-10-04 03:36:52 Ezra Cruz [facility] POCT TEST 2023-10-04 01:40:00 Ezra Cruz [facility] COMP. METABOLIC PANEL (38928) 2023-10-04 01:12:00 Ezra Cruz [facility] CBC WITH DIFF 2023-10-04 01:12:00 Ezra Cruz [facility] URINALYSIS 2023-10-04 01:12:00 Ezra Cruz [facility] POCT URINALYSIS AUTO 2023-10-03 23:59:00 Mary Hassan, Physician [facility] ASSIGNMENT OF BENEFITS 2023-10-03 23:44:24 Lida hinds Unassigned, [place] [facility] BI SCREENING TOMOSYNTHESIS BILATERAL 2023-08-23 14:28:02 Arcelia Lees [facility] FREE T4 2023-01-02 14:32:00 Arcelia Lees [facility] THYROID STIMULATING HORMONE 2023-01-02 14:32:00 Arcelia Lees [facility] LIPID PANEL (01083)(TOTAL CHOLESTEROL, TRIGLYCERIDES, HDL) 2023-01-02 14:32:00 Arcelia Lees [facility] GLYCOSYLATED HEMOGLOBIN (A1C) 2023-01-02 14:32:00 Arcelia Lees [facility] VITAMIN D, 25-OH 2023-01-02 14:32:00 Arcelia Lees [facility] FLU VACC (1906-2077), 6 MO-64 YRS, .5ML, IM, QUAD (FLUCELVAX) 2022-10-23 15:04:57 Arcelia Lees [facility] ASSIGNMENT OF BENEFITS 2022-09-13 14:36:46 Docconnie hinds Unassigned, [place] [facility] Encounters Start Date/Time End Date/Time Encounter Type Admission Type Attending Clinicians Care Facility Care Department Encounter ID Source 2023-10-03 18:30:54 Emergency X [facility] [id number] [facility] 2024-10-20 08:13:07 2024-10-20 23:59:00 Outpatient R ARCELIA LEES [facility] [id number] [facility] 2024-10-20 08:13:07 2024-10-20 23:59:00 Hospital Encounter Arcelia Lees [facility] 1.2.840.114 350.1.13.10 4.2.7.2.[id number] [facility] 2024-09-09 00:00:00 2024-09-09 09:14:47 Telephone Arcelia Lees [facility] 1.114 350.1.13.10 4.2.7.2.[id number] [facility] 2024-08-09 12:00:00 2024-08-09 13:09:41 Outpatient R MYAH KOCH [facility] [id number] [facility] 2024-08-09 12:00:00 2024-08-09 12:15:00 Urgent Care Myah Koch Unknown, Attending [facility] 1.114 350.1.13.10 4.2.7.2.[id number] [facility] 2024-07-24 19:07:33 2024-07-24 23:59:00 Outpatient R VALERIE DE OLIVEIRA [facility] [id number] [facility] 2024-07-24 19:07:33 2024-07-24 23:59:00 Hospital Encounter Valerie De Oliveira [facility] 1.84.114 350.1.13.10 4.2.7.2.[id number] [facility] 2024-07-24 00:00:00 2024-07-24 20:50:42 Telephone Arcelia Lees [facility] 1.114 350.1.13.10 4.2.7.2.[id number] [facility] 2024-07-24 19:20:00 2024-07-24 19:20:00 Urgent Care Valerie De Oliveira Unknown, Attending [facility] 1.0.114 350.1.13.10 4.2.7.2.[id number] [facility] 2024-07-21 08:15:00 2024-07-21 08:30:10 Outpatient R ARCELIA LEES [facility] [id number] [facility] 2024-07-21 08:15:00 2024-07-21 08:30:10 Office Visit Arcelia Lees [facility] 1..114 350.1.13.10 4.2.7.2.[id number] [facility] 2024-05-09 13:31:00 2024-05-09 16:11:00 Emergency X ELY JOY MELANIE [facility] ERT [id number] [facility] 2024-05-09 13:31:00 2024-05-09 16:11:00 Emergency Ely Joy [facility] ([facility] 1..114 350.1.13.10 4.2.7.2.[id number] [facility] 2024-02-04 00:00:00 2024-02-04 00:00:00 Patient Secure Msg Arcelia Lees [facility] 1..114 350.1.13.10 4.2.7.2.[id number] [facility] 2024-01-03 07:45:00 2024-01-03 08:12:01 Outpatient R ARCELIA LEES [facility] [id number] [facility] 2024-01-03 07:45:00 2024-01-03 08:12:01 Office Visit Arcelia Lees [facility] 1..114 350.1.13.10 4.2.7.2.[id number] [facility] 2023-12-07 10:00:00 2023-12-07 10:15:00 Office Visit Arcelia Lees [facility] 1.114 350.1.13.10 4.2.7.2.[id number] [facility] 2023-12-07 10:00:00 2023-12-07 10:00:00 Outpatient R ARCELIA LEES [facility] [id number] [facility] 2023-11-27 00:00:00 2023-11-27 00:00:00 Patient Secure Msg Arcelia Lees [facility] 1..114 350.1.13.10 4.2.7.2.[id number] [facility] 2023-11-26 09:15:00 2023-11-26 11:01:00 [id number] 2023-11-26 09:15:00 2023-11-26 09:30:00 Office Visit [facility] 1.840.114 350.1.13.10 4.2.7.2.[id number] [facility] 2023-11-26 09:00:00 2023-11-26 09:23:02 Outpatient [facility] [id number] [facility] 2023-11-26 09:00:00 2023-11-26 09:15:00 Office Visit [facility] 1.840.114 350.1.13.10 4.2.7.2.[id number] [facility] 2023-10-25 12:00:00 2023-10-25 14:47:41 Outpatient R MORGAN, MARIA [facility] [id number] [facility] 2023-10-25 12:00:00 2023-10-25 12:30:00 Office Visit Saranya Morgan [facility] 1.2.840.114 350.1.13.10 4.2.7.2.[id number] [facility] 2023-10-19 00:00:00 2023-10-19 00:00:00 Arcelia Madden [facility] 1.2.840.114 350.1.13.10 4.2.7.2.[id number] [facility] 2023-10-08 16:00:00 2023-10-08 16:30:00 Office Visit Juanis Steele [facility] 1.2840.114 350.1.13.10 4.2.7.2.[id number] [facility] 2023-10-08 16:00:00 2023-10-08 16:08:49 Outpatient JUANIS SOLIS [facility] [id number] [facility] 2023-10-08 16:00:00 2023-10-08 16:00:00 Outpatient JUANIS SOLIS [facility] [id number] [facility] 2023-10-03 18:47:00 2023-10-04 00:12:00 Emergency Ezra Cruz [facility] ([facility] 1.2840.114 350.1.13.10 4.2.7.2.[id number] [facility] 2023-10-03 18:47:00 2023-10-04 00:12:00 Emergency X EZRA CRUZ [facility] [id number] [facility] 2023-10-03 18:00:00 2023-10-03 18:54:15 Outpatient R ELBERT DUNCAN [facility] [id number] [facility] 2023-10-03 18:00:00 2023-10-03 18:54:15 Urgent Care Elbert Duncan Unknown, Attending [facility] 1.284.114 350.1.13.10 4.2.7.2.[id number] [facility] 2023-10-03 00:00:00 2023-10-03 00:00:00 Orders Only Doctor Unassigned, [place] [facility] 1.840.114 350.1.13.10 4.2.7.2.[id number] [facility] 2023-08-23 08:16:06 2023-08-23 23:59:00 Outpatient R ARCELIA LEES [facility] [id number] [facility] 2023-08-23 08:16:06 2023-08-23 23:59:00 Hospital Encounter Arcelia Lees [facility] 1.840.114 350.1.13.10 4.2.7.2.[id number] [facility] 2023-07-25 08:45:00 2023-07-25 08:45:00 Outpatient R ARCELIA LEES [facility] [id number] [facility] 2023-07-06 00:00:00 2023-07-06 00:00:00 Patient Secure Msg Doctor Unassigned, [place] [facility] 1.840.114 350.1.13.10 4.2.7.2.[id number] [facility] 2023-07-05 09:00:00 2023-07-05 09:24:37 Outpatient R ARCELIA LEES [facility] [id number] [facility] 2023-07-05 09:00:00 2023-07-05 09:24:37 Office Visit Arcelia Lees [facility] 1.2840.114 350.1.13.10 4.2.7.2.[id number] [facility] 2023-01-02 08:45:00 2023-01-02 09:36:08 Outpatient R ARCELIA LEES [facility] [id number] [facility] 2023-01-02 08:45:00 2023-01-02 09:36:08 Office Visit Arcelia Lees [facility] 1.2840.114 350.1.13.10 4.2.7.2.[id number] [facility] 2022-12-15 09:30:00 2022-12-15 09:30:00 Outpatient R ARCELIA LEES [facility] [id number] [facility] 2022-11-30 00:00:00 2022-11-30 00:00:00 RefArcelia Sampson [facility] 1.2840.114 350.1.13.10 4.2.7.2.[id number] [facility] 2022-10-23 08:45:00 2022-10-23 09:03:59 Outpatient R ARCELIA LEES [facility] [id number] [facility] 2022-10-23 08:45:00 2022-10-23 09:03:59 Office Visit Arcelia Lees [facility] 1.840.114 350.1.13.10 4.2.7.2.[id number] [facility] 2022-09-28 00:00:00 2022-09-28 00:00:00 Refill Arcelia Lees [facility] 1.840.114 350.1.13.10 4.2.7.2.[id number] [facility] 2022-09-27 00:00:00 2022-09-27 00:00:00 Patient Secure Msg Nabeel Arcelia THAO [facility] 1..114 350.1.13.10 4.2.7.2.[id number] [facility] 2022-09-20 00:00:00 2022-09-20 00:00:00 Patient Secure Msg Nabeel Arcelia THAO [facility] 1..114 350.1.13.10 4.2.7.2.[id number] [facility] 2022-09-14 00:00:00 2022-09-14 00:00:00 Telephone Nabeel Arcelia THAO [facility] 1..114 350.1.13.10 4.2.7.2.[id number] [facility] 2022-09-13 09:15:00 2022-09-13 10:02:14 Outpatient R ARCELIA LEES [facility] [id number] [facility] 2022-09-13 09:15:00 2022-09-13 10:02:14 Office Visit Arcelia Lees [facility] 1.114 350.1.13.10 4.2.7.2.[id number] [facility] 2022-09-13 00:00:00 2022-09-13 00:00:00 Orders Only Doctor Unassigned, [place] [facility] 1.114 350.1.13.10 4.2.7.2.[id number] [facility] 2022-05-31 14:00:00 2022-05-31 14:20:00 Office Visit Dago Priest [facility] MED[facility] 1.114 350.1.13.10 4.2.7.2.[id number] [facility] 2022-05-31 14:00:00 2022-05-31 14:00:00 Outpatient R DAGO PRIEST [facility] [id number] [facility] 2022-05-31 14:00:00 2022-05-31 14:00:00 Outpatient R DEBRA [facility] [id number] [facility] 2022-05-31 14:00:00 2022-05-31 14:00:00 Outpatient R DEBRA [facility] [id number] [facility] 2022-05-09 09:00:00 2022-05-09 09:00:00 Outpatient R KVNG CYNTHIA [facility] [id number] [facility] 2022-05-02 15:30:00 2022-05-02 16:31:56 Outpatient R ABHISHEK GROVER [facility] [id number] [facility] 2022-05-02 15:30:00 2022-05-02 16:31:56 Urgent Care Abhishek Grover Unknown, Attending [facility] 1..840.114 350.1.13.10 4.2.7.2.[id number] [facility] 2022-04-28 09:29:31 2022-04-28 23:59:00 Hospital Encounter TivoliCynthia gongora [facility] ..840.114 350.1.13.10 4.2.7.2.[id number] [facility] 2022-04-28 09:29:00 2022-04-28 09:29:00 Outpatient R CYNTHIA CALDERON [facility] [id number] [facility] 2022-04-28 09:29:00 2022-04-28 09:29:00 Hospital Encounter TivoliCynthia gongora [facility] 1.840.114 350.1.13.10 4.2.7.2.[id number] [facility] 2022-04-26 14:20:00 2022-04-26 14:20:00 Outpatient R DAGO PRIEST [facility] [id number] [facility] 2022-04-26 14:20:00 2022-04-26 14:20:00 Outpatient R DEBRA [facility] [id number] [facility] 2022-04-26 14:20:00 2022-04-26 14:20:00 Office Visit Dago Priest [facility] 1.840.114 350.1.13.10 4.2.7.2.[id number] [facility] 2022-04-26 14:20:00 2022-04-26 14:13:37 [id number] 2022-04-20 10:17:00 2022-04-21 10:27:00 Outpatient R DEBRA [facility] [employer] [id number] [facility] 2022-04-20 10:17:00 2022-04-21 10:27:00 Hospital Encounter [facility] 1.2840.114 350.1.13.10 4.2.7.2.[id number] [facility] 2022-04-20 10:17:00 2022-04-21 10:27:00 Outpatient R DEBRA [facility] [employer] [id number] [facility] 2022-04-20 13:31:00 2022-04-20 18:07:00 Surgery [facility] 1.840.114 350.1.13.10 4.2.7.2.[id number] [facility] 2022-04-20 00:00:00 2022-04-20 00:00:00 Orders Only Doctor Unassigned, [place] [facility] 1.2.840.114 350.1.13.10 4.2.7.2.[id number] [facility] 2022-04-18 00:00:00 2022-04-18 00:00:00 Telephone Maribell Veras [facility] 1.2.840.114 350.1.13.10 4.2.7.2.[id number] [facility] 2022-04-17 17:30:00 2022-04-17 17:45:00 Laboratory Only Only, Clc Main Test Summer Temple [facility] ([facility]) 1.2.840.114 350.1.13.10 4.2.7.2.[id number] [facility] 2022-04-17 17:30:00 2022-04-17 17:30:00 Outpatient SUMMER DUGAN [facility] [id number] [facility] 2022-04-05 13:00:00 2022-04-05 14:07:23 Outpatient DAGO MAURICIO [facility] [id number] [facility] 2022-04-05 13:00:00 2022-04-05 14:07:23 Office Visit Dago Priest [facility] MED[facility] OFFICE BUILD[facility] 1.2.840.114 350.1.13.10 4.2.7.2.[id number] [facility] 2022-04-05 13:00:00 2022-04-05 14:07:23 Outpatient DAGO MAURICIO [facility] [id number] [facility] 2022-04-05 13:00:00 2022-04-05 14:07:23 [id number] 2022-04-05 13:00:00 2022-04-05 13:00:00 Outpatient R DAGO PRIEST [facility] [id number] [facility] 2022-03-24 09:00:00 2022-03-24 09:25:25 Outpatient R ARCELIA LEES [facility] [id number] [facility] 2022-03-24 09:00:00 2022-03-24 09:25:25 Office Visit Arcelia Lees [facility] 1..840.114 350.1.13.10 4.2.7.2.[id number] [facility] 2022-03-24 09:00:00 2022-03-24 09:25:25 Outpatient ARCELIA SPEAR [facility] [id number] [facility] 2022-03-12 12:52:28 2022-03-12 23:59:00 Outpatient R DAOG PRIEST [facility] [id number] [facility] 2022-03-12 12:52:28 2022-03-12 23:59:00 Hospital Encounter Dago Priest [facility] 1..840.114 350.1.13.10 4.2.7.2.[id number] [facility] 2022-03-12 13:00:00 2022-03-12 13:00:00 Outpatient R DAGO PRIEST [facility] [id number] [facility] 2022-03-08 15:20:00 2022-03-08 15:50:31 [facility] 1..840.114 350.1.13.10 4.2.7.2.[id number] [facility] 2022-03-08 15:20:00 2022-03-08 15:50:31 Outpatient R PRIEST, [facility] [id number] [facility] 2022-03-08 15:20:00 2022-03-08 15:20:00 Outpatient R DAGO PRIEST [facility] [id number] [facility] 2022-02-28 00:00:00 2022-02-28 00:00:00 Patient Secure Msg [place], [facility] MEDICAL OFFICE BUILDING 1..840.114 350.1.13.10 4.2.7.2.[id number] [facility] 2022-02-28 00:00:00 2022-02-28 00:00:00 Telephone Dago Priest [facility] MEDICAL OFFICE BUILDING 1..840.114 350.1.13.10 4.2.7.2.[id number] [facility] 2022-02-21 13:00:00 2022-02-21 13:44:15 [id number] 2022-02-21 13:00:00 2022-02-21 13:44:15 [facility] 1..840.114 350.1.13.10 4.2.7.2.[id number] [facility] 2022-02-21 13:00:00 2022-02-21 13:44:15 Outpatient R KVNGCYNTHIA GONGORA [facility] [id number] [facility] 2022-02-21 13:00:00 2022-02-21 13:44:15 Outpatient R KVNG, [facility] [id number] [facility] 2021-12-02 15:00:00 2021-12-02 15:30:50 Office Visit Vini Rand [facility] 1..840.114 350.1.13.10 4.2.7.2.[id number] [facility] 2021-12-02 15:00:00 2021-12-02 15:30:50 Outpatient R GIORGI, [facility] [id number] [facility] 2021-12-02 15:00:00 2021-12-02 15:00:00 [facility] [id number] [facility] 2021-12-02 15:00:00 2021-12-02 15:00:00 [facility] [id number] [facility] 2021-11-21 00:00:00 2021-11-21 00:00:00 Patient Secure Msg Doctor Unassigned, [place] [facility] 1.840.114 350.1.13.10 4.2.7.2.[id number] [facility] 2021-11-17 09:30:00 2021-11-17 10:00:00 Office Visit Saranya [facility] 1..114 350.1.13.10 4.2.7.2.[id number] [facility] 2021-11-17 09:30:00 2021-11-17 09:30:00 Outpatient SARANYA VELA [facility] [id number] [facility] 2021-11-14 18:45:00 2021-11-14 19:00:00 Laboratory Only Only, Laura Juanis Enriquez [facility] 1..114 350.1.13.10 4.2.7.2.[id number] [facility] 2021-11-14 18:45:00 2021-11-14 18:53:25 Outpatient JUANIS SOLIS [facility] [id number] [facility] 2021-09-23 08:00:00 2021-09-23 10:35:56 Outpatient R ARCELIA LEES [facility] [id number] [facility] 2021-09-23 08:00:00 2021-09-23 10:35:56 Outpatient R ARCELIA LEES [facility] [id number] [facility] 2021-09-23 07:44:37 2021-09-23 10:35:56 Office Visit Arcelia Lees [facility] 1.840.114 350.1.13.10 4.2.7.2.[id number] [facility] 2021-09-23 08:00:00 2021-09-23 08:00:00 Outpatient ARCELIA SPEAR [facility] [id number] [facility] 2021-09-01 08:00:00 2021-09-01 08:13:23 Outpatient R ARCELIA LEES [facility] [id number] [facility] 2021-09-01 07:56:38 2021-09-01 08:13:23 Nurse Visit Nurse, Arcelia Alberts [facility] 1.840.114 350.1.13.10 4.2.7.2.[id number] [facility] 2021-08-20 00:00:00 2021-08-20 00:00:00 Ivan Fraser [facility] 1..840.114 350.1.13.10 4.2.7.2.[id number] [facility] 2021-07-29 13:15:00 2021-07-29 13:15:00 Outpatient R CORRINA, ATTENDING [facility] [id number] [facility] 2021-07-29 12:58:54 2021-07-29 13:13:54 Urgent Care Ivan Cochran Unknown, Attending [facility] 1.2.840.114 350.1.13.10 4.2.7.2.[id number] [facility] 2021-06-21 10:00:00 2021-06-21 10:00:00 Outpatient R UNKNOWN, ATTENDING [facility] [id number] [facility] 2021-06-21 09:37:07 2021-06-21 09:52:07 Laboratory Only Only, L[facility] Uc Test Unknown, Attending [facility] 1.2.840.114 350.1.13.10 4.2.7.2.[id number] [facility] 2021-06-21 00:00:00 2021-06-21 00:00:00 Telephone Maribell Veras [facility] 1.840.114 350.1.13.10 4.2.7.2.[id number] [facility] 2021-06-15 00:00:00 2021-06-15 00:00:00 Juanis Mendez [facility] [facility] 1.840.114 350.1.13.10 4.2.7.2.[id number] [facility] 2021-06-15 00:00:00 2021-06-15 00:00:00 [facility] 1.2840.114 350.1.13.10 4.2.7.2.[id number] [facility] 2021-06-08 07:57:46 2021-06-08 08:22:10 Nurse Visit Nurse, Arcelia Alberts [facility] 1.840.114 350.1.13.10 4.2.7.2.[id number] [facility] 2021-06-08 08:00:00 2021-06-08 08:00:00 Outpatient R ARCELIA LEES [facility] [id number] [facility] 2021-05-24 15:50:55 2021-05-24 16:20:55 Office Visit Juanis Steele [facility] 1.114 350.1.13.10 4.2.7.2.[id number] [facility] 2021-05-24 16:00:00 2021-05-24 16:00:00 Outpatient R JUANIS STEELE [facility] [id number] [facility] 2021-05-24 00:00:00 2021-05-24 00:00:00 Orders Only Juanis Steele [facility] 1..114 350.1.13.10 4.2.7.2.[id number] [facility] 2021-03-29 15:41:19 2021-03-29 23:59:00 Hospital Encounter Arcelia Lees [facility] 1..114 350.1.13.10 4.2.7.2.[id number] [facility] 2021-03-29 00:00:00 2021-03-29 00:00:00 Outpatient ARCELIA SPEAR [facility] [id number] [facility] 2021-03-24 00:00:00 2021-03-24 00:00:00 Patient Secure Msg Doctor Unassigned, [place] [facility] 1.114 350.1.13.10 4.2.7.2.[id number] [facility] 2021-03-23 08:07:35 2021-03-23 09:06:20 Office Visit Arcelia Lees [facility] 1.114 350.1.13.10 4.2.7.2.[id number] [facility] 2021-03-23 08:00:00 2021-03-23 08:00:00 Outpatient R [facility] [id number] [facility] 2021-03-01 00:00:00 2021-03-01 00:00:00 Refill Arcelia Lees [facility] 1..114 350.1.13.10 4.2.7.2.[id number] [facility] 2021-02-16 17:51:23 2021-02-16 23:59:00 Hospital Encounter Juanis Steele [facility] 1.114 350.1.13.10 4.2.7.2.[id number] [facility] 2021-02-16 17:29:41 2021-02-16 18:17:23 Urgent Care Juanis Steele Unknown, Attending [facility] 1.114 350.1.13.10 4.2.7.2.[id number] [facility] 2021-02-16 17:30:00 2021-02-16 17:30:00 Outpatient R UNKNOWN, ATTENDING [facility] [id number] [facility] 2020-12-29 00:00:00 2020-12-29 00:00:00 Telephone Arcelia Lees [facility] 1.114 350.1.13.10 4.2.7.2.[id number] [facility] 2020-12-28 07:51:08 2020-12-28 08:11:57 Nurse Visit Nurse, Arcelia Alberts [facility] 1.114 350.1.13.10 4.2.7.2.[id number] [facility] 2020-12-28 08:00:00 2020-12-28 08:00:00 Outpatient R [facility] [id number] [facility] 2020-11-18 00:00:00 2020-11-18 00:00:00 Patient Secure Msg Arcelia Lees [facility] 1.114 350.1.13.10 4.2.7.2.[id number] [facility] 2020-11-05 17:00:00 2020-11-05 17:00:00 Outpatient R LINSEY CHIU [facility] [id number] [facility] 2020-11-05 08:35:29 2020-11-05 08:50:29 Telemedici ne Visit Linsey Chiu [facility] 1.114 350.1.13.10 4.2.7.2.[id number] [facility] 2020-11-04 00:00:00 2020-11-04 00:00:00 Telephone Arcelia Lees [facility] 1.114 350.1.13.10 4.2.7.2.[id number] [facility] 2020-10-27 00:00:00 2020-10-27 00:00:00 Patient Secure Msg Doctor Unassigned, [place] [facility] 1..114 350.1.13.10 4.2.7.2.[id number] [facility] 2020-10-25 14:30:00 2020-10-25 14:30:00 Outpatient R UNKNOWN, ATTENDING [facility] [id number] [facility] 2020-10-11 08:00:00 2020-10-11 11:17:26 Nurse Visit NurseLaura James Y [facility] 1.114 350.1.13.10 4.2.7.2.[id number] [facility] 2020-10-11 07:53:14 2020-10-11 08:13:14 Nurse Visit Nurse, Arcelia Alberts [facility] 1.114 350.1.13.10 4.2.7.2.[id number] [facility] 2020-10-11 08:00:00 2020-10-11 08:00:00 Outpatient R [facility] [id number] [facility] 2020-09-21 00:00:00 2020-09-21 00:00:00 RefArcelia Sampson [facility] 1..114 350.1.13.10 4.2.7.2.[id number] [facility] 2020-09-20 07:47:26 2020-09-20 08:57:24 Office Visit Arcelia Lees [facility] 1.114 350.1.13.10 4.2.7.2.[id number] [facility] 2020-09-20 08:00:00 2020-09-20 08:00:00 Outpatient ARCELIA SPEAR [facility] [id number] [facility] 2020-08-05 13:50:00 2020-08-05 13:50:00 Outpatient R ARCELIA LEES [facility] [id number] [facility] 2020-08-03 14:10:00 2020-08-03 14:10:00 Outpatient R ARCELIA LEES [facility] [id number] [facility] 2020-08-03 13:52:31 2020-08-03 14:02:31 Imm/Inj Visit Nurse, Arcelia Alberts [facility] 1.2.840.114 350.1.13.10 4.2.7.2.[id number] [facility] 2020-07-24 18:10:00 2020-07-24 23:59:00 Hospital Encounter Francoise Eagle Rosemarie Thao [facility] 1.2.840.114 350.1.13.10 4.2.7.2.[id number] [facility] 2020-07-24 17:45:39 2020-07-24 18:00:39 Urgent Care Care, Laura Urgent Unknown, Attending Master [facility] 1.2840.114 350.1.13.10 4.2.7.2.[id number] [facility] 2020-07-24 18:00:00 2020-07-24 18:00:00 Outpatient R UNKNOWN, ATTENDING [facility] [id number] [facility] 2020-07-23 10:30:00 2020-07-23 10:30:00 Outpatient LINSEY HODGSON [facility] [id number] [facility] 2020-07-23 09:57:43 2020-07-23 10:11:56 Nurse Visit Nurse, Linsey Bourgeois [facility] 1.840.114 350.1.13.10 4.2.7.2.[id number] [facility] 2020-05-07 10:29:28 2020-05-07 10:36:43 Nurse Visit Nurse, Arcelia Alberts [facility] 1.840.114 350.1.13.10 4.2.7.2.[id number] [facility] 2020-05-07 10:30:00 2020-05-07 10:30:00 Outpatient ARCELIA SPEAR [facility] [id number] [facility] 2020-04-07 14:30:00 2020-04-07 14:30:00 Outpatient R UNKNOWN, ATTENDING [facility] [id number] [facility] 2020-04-07 13:57:48 2020-04-07 14:12:48 Urgent Care Leida Montague Unknown, Attending [facility] 1.114 350.1.13.10 4.2.7.2.[id number] [facility] 2020 08:07:53 2020 10:13:16 Nurse Visit NurseLaura James Y Alvin [facility] 1.114 350.1.13.10 4.2.7.2.[id number] [facility] 2020 08:00:00 2020 08:00:00 Outpatient R ARCELIA LEES [facility] [id number] [facility] 2020-03-18 09:51:46 2020-03-18 10:20:15 Office Visit Arcelia Lees [facility] 1.114 350.1.13.10 4.2.7.2.[id number] [facility] 2020-03-18 10:00:00 2020-03-18 10:00:00 Outpatient ARCELIA SPEAR [facility] [id number] [facility] 2020-02-10 08:40:00 2020-02-10 08:40:00 Outpatient R ARCELIA LEES [facility] [id number] [facility] 2020-02-10 08:29:15 2020-02-10 08:39:39 Nurse Visit NurseLaura James Y [facility] 1.114 350.1.13.10 4.2.7.2.[id number] [facility] 2020-01-25 00:00:00 2020-01-25 00:00:00 Telephone Amelia Yo Rodrigo [facility] 1..114 350.1.13.10 4.2.7.2.[id number] [facility] 2020-01-24 09:30:00 2020-01-24 09:30:00 Outpatient R UNKNOWN, ATTENDING [facility] [id number] [facility] 2020-01-23 15:40:00 2020-01-23 15:40:00 Outpatient R SIRIDIYABLAINE Almanzar [facility] [id number] [facility] 2020-01-23 15:00:44 2020-01-23 15:20:44 Telemedici ne Visit SiriDiyayohan Greertaz [facility] 1.0.114 350.1.13.10 4.2.7.2.[id number] [facility] 2019-11-24 08:42:36 2019-11-24 09:02:36 Nurse Visit NurseLaura Amber Ali [facility] 1..114 350.1.13.10 4.2.7.2.[id number] [facility] 2019-10-29 08:19:23 2019-10-29 09:03:40 Office Visit Vini Rand [facility] 1.114 350.1.13.10 4.2.7.2.[id number] [facility] 2019-06-02 07:47:39 2019-06-02 08:07:39 Nurse Visit NurseLaura James Y [facility] 1..114 350.1.13.10 4.2.7.2.[id number] [facility] Results Test Description Test Time Test Comments Results Resul t Comments Source XR FOOT <3 VW LEFT 2024-07-25 00:35:53 History: dropped couch on foot. pain to 4th and 5th toes and lateral foot . Exam: XR FOOT <3 VW LEFT Date: 07/24/2024 7:07 PM Ordering provider: VALERIE DE OLIVEIRA Technical quality: Adequate Comparison: None available. Findings: Frontal, lateral, and oblique views of the left foot are obtained. Thejoint spaces are preserved. No evidence of fracture or dislocation. [facility] XR FOOT 3+ VW RIGHT 2024-05-09 20:04:03 XR FOOT 3+ VW RIGHT HISTORY: ?Trauma, evaluate for fracture COMPARISON: 02/16/2021 Findings:Osseous structures are intact. ?Joint spaces are preserved.There is soft tissue edema. ? [facility] MOLECULAR [id number] 16:16:24* Test Item Value Reference Range Interpretation Comme nts POCT Molecular Strep (test c ode = 18765-9) Negative Negative Lab Interpretation (test cod e = 37738-3) Normal [facility] Urinalysis W Specific [id number] 18:43:00* Test Item Value Reference Range Interpretation Comme nts POCT U SP GRAV (test code = 3255) 1.015 mg/dl 1.005-1.025 POCT PH U (test code = 3254) 8 mg/dl 5-8 POCT U LEUK EST (test code = 3263) ++ Negative - Negative POCT U NIT (test code = 3262) pos Negative - Negati ve POCT U PROT (test code = 3259) ++ Negative - Negative POCT U GLU (test code = 3256) normal Negative - Negati ve POCT U KETONE (test code = 3258) neg Negative - Negative POCT U UROBILI (test code = 3260) normal 0.2-1 POCT U BILI (test code = 3261) + Negative - Negative POCT U BLD (test code = 3257) about 250 Negative - Negati ve POCT U COLOR (test code = 3266) watson POCT U APPEAR (test code = 3267) cloudy [facility] Urinalysis W Specific [id number] 18:43:00* Test Item Value Reference Range Interpretation Comme nts POCT U SP GRAV (test code = 3255) 1.015 mg/dl 1.005-1.025 POCT PH U (test code = 3254) 8 mg/dl 5-8 POCT U LEUK EST (test code = 3263) ++ Negative - Negative POCT U NIT (test code = 3262) pos Negative - Negati ve POCT U PROT (test code = 3259) ++ Negative - Negative POCT U GLU (test code = 3256) normal Negative - Negati ve POCT U KETONE (test code = 3258) neg Negative - Negative POCT U UROBILI (test code = 3260) normal 0.2-1 POCT U BILI (test code = 3261) + Negative - Negative POCT U BLD (test code = 3257) about 250 Negative - Negati ve POCT U COLOR (test code = 3266) watson POCT U APPEAR (test code = 3267) cloudy [facility] Molecular [id number] 20:49:49* Test Item Value Reference Range Interpretation Comme nts POCT Molecular FluA (test co de = 29956-2) Positive Negative A Lab Interpretation (test cod e = 37421-4) Abnormal [facility] Molecular [id number] 20:49:49* Test Item Value Reference Range Interpretation Comme nts POCT Molecular FluA (test co de = 81971-8) Positive Negative A Lab Interpretation (test cod e = 06787-4) Abnormal [facility] [id number] 01:40:00* Test Item Value Reference Range Interpretation Comme nts POCT PREG (test code = 1605) Negative On board controls acceptable with C Line (test code = 3574) Yes POCT PREG LOT # (test code = 3579) [id number] POCT PREG TEST DATE ( test code = 3576) 12/30/2024 Lab Interpretation (test cod e = 84323-9) Normal [facility] Urinalysis, [id number] 00:02:00 * Test Item Value Reference Range Interpretation Comme nts POCT U SP GRAV (test code = 3255) 1.030 mg/dl 1.005-1.025 A POCT PH U (test code = 3254) 5.5 mg/dl 5-8 POCT U LEUK EST (test code = 3263) large Negative - Negative POCT U NIT (test code = 3262) positive Negative - Negative POCT U PROT (test code = 3259) >=300 mg/dl Negative - Negative POCT U GLU (test code = 3256) negative Negative - Negative POCT U KETONE (test code = 3258) trace Negative - Negative POCT U UROBILI (test code = 3260) 1.0 e.u. /dl 0.2-1 POCT U BILI (test code = 3261) moderate Negative - Negative POCT U BLD (test code = 3257) large Negative - Negative POCT U COLOR (test code = 3266) red POCT U APPEAR (test code = 3267) opaque Lab Interpretation (test code = 64934-1) [facility] [id number] 00:02:00 * Test Item Value Reference Range Interpretation Comme nts POCT U SP GRAV (test code = 3255) 1.030 mg/dl 1.005-1.025 A POCT PH U (test code = 3254) 5.5 mg/dl 5-8 POCT U LEUK EST (test code = 3263) large Negative - Negative POCT U NIT (test code = 3262) positive Negative - Negative POCT U PROT (test code = 3259) >=300 mg/dl Negative - Negative POCT U GLU (test code = 3256) negative Negative - Negative POCT U KETONE (test code = 3258) trace Negative - Negative POCT U UROBILI (test code = 3260) 1.0 e.u. /dl 0.2-1 POCT U BILI (test code = 3261) moderate Negative - Negative POCT U BLD (test code = 3257) large Negative - Negative POCT U COLOR (test code = 3266) red POCT U APPEAR (test code = 3267) opaque Lab Interpretation (test code = 72896-7) Abnormal [facility]
[2024-11-26] MEDS ORDERED: KETOROLAC 30 MG/ML INJ ONE (10:29)
[2024-11-26] MEDS ORDERED: droPERidol 5 MG/2 ML VIAL ONE (10:29)
[2024-11-26 10:49] LABS: Absolute Monocytes 0.4 K/uL (0.1-1.3); Absolute Neutrophil 3.3 K/uL (1.8-8.0); Basophils % 0.4 % (0-1.3); Eosinophils % 0.7 % (0-4.4); Hematocrit 40.1 % (36.0-45.0); Lymphocytes % 34.4 % (15.3-44.8); MCH 31.4 pg (27.0-35.0); MCV 89.6 fL (80-100); MPV 8.3 fL (7.6-11.3); Monocytes % 6.9 % (3.3-12.3); Neutrophils % 57.6 % (41.7-73.7); Nucleated Red Blood Cells % 0.1 % (0-0); Platelets 281 thou/uL (152-406); RBC Red Blood Cell Count 4.48 M/uL (3.86-4.86); Red Cell Distribution Width 12.4 % (12.1-15.2)
[2024-11-26 10:54] LABS: Anion Gap 8.1 mEq/L (5.0-15.0); Potassium 4.1 mEq/L (3.5-5.1)
[2024-11-26 10:57] LABS: SARS-CoV-2 Antigen CONTROL BLUE LINE VIS/BG OK; SARS-CoV-2 Antigen Rapid Res Negative (Negative)
--- NOTE | 2024-11-26 12:15 | RAD REPORT ---
EXAMINATION: ONE VIEW CHEST XR CLINICAL INDICATION: COUGH TECHNIQUE: Frontal chest projection is submitted. Examination is limited by patient positioning and t echnique. COMPARISON: No prior exam. FINDINGS: The lungs are well inflated and clear. The heart is upper limit of normal in size. No displaced fract ures identified. IMPRESSION: No acute intrathoracic abnormalities.
--- NOTE | 2024-11-26 13:08 | ER ---
Nurse's Notes [facility] Name: Felicitas Ann Age: 44 yrs Sex: Female : 1980 Arrival Date: 11/26/2024 Time: 09:50 Bed 6 Private MD: Diagnosis: Viral infection, unspecified Presentation: 11/26 10:15 Chief complaint: Patient states: Chest pain to the center of chest that is worse with cm10 cough and breathing onset this morning. Coronavirus screen: Client denies travel out of the [place] in the last 14 days. Ebola Screen: Patient denies travel to an Ebola-affected area in the 21 days before illness onset. Initial Sepsis Screen: Does the patient meet any 2 criteria? No. Patient's initial sepsis screen is negative. Does the patient have a suspected source of infection? No. Patient's initial sepsis screen is negative. Risk Assessment: Do you want to hurt yourself or someone else? Patient reports no desire to harm self or others. Onset of symptoms was November 26, 2024. 10:15 Method Of Arrival: Wheelchair cm10 10:15 Acuity: NIKKO 3 cm10 Triage Assessment: 10:16 General: Appears uncomfortable, Behavior is cooperative. Neuro: No deficits noted. cm10 Level of Consciousness is awake, alert, obeys commands, Oriented to person, place, time, situation, Appropriate for age. Respiratory: No deficits noted. Reports pain with cough pain with respiration Airway is patent Respiratory effort is even, unlabored, Respiratory pattern is regular, symmetrical. Historical: - Allergies: 10:16 PERTUSSIS VACCINES; cm10 - PMHx: 10:16 Diabetes mellitus; Hypothyroidism; cm10 - Immunization history:: Adult Immunizations up to date. - Infectious Disease History:: Denies. - Social history:: Smoking status: unknown. Screenin:04 [facility] ED Fall Risk Assessment (Adult) History of falling in the last 3 months, kc6 including since admission No falls in past 3 months (0 pts) Confusion or Disorientation No (0 pts) Intoxicated or Sedated No (0 pts) Impaired Gait No (0 pts) Mobility Assist Device Used No (0 pt) Altered Elimination No (0 pt) Score/Fall Risk Level 0 - 2 = Low Risk Oriented to surroundings, Maintained a safe environment. Abuse screen: Denies threats or abuse. Denies injuries from another. Nutritional screening: No deficits noted. Tuberculosis screening: No symptoms or risk factors identified. Assessment: 11:04 General: Appears in no apparent distress. uncomfortable, well groomed, well developed, kc6 Behavior is calm, cooperative, appropriate for age. Pain: Complains of pain in epigastric area Pain does not radiate. Neuro: Level of Consciousness is awake, alert, obeys commands, Oriented to person, place, time, situation, Appropriate for age. Cardiovascular: Reports chest pain, Capillary refill < 3 seconds Rhythm is regular. Respiratory: Airway is patent Trachea midline Respiratory effort is even, unlabored, Respiratory pattern is regular, symmetrical. GI: Abdomen is flat, non-distended, Pt is actively vomiting clear fluid, Bowel sounds present X 4 quads. Abd is soft X 4 quads Abdomen is tender to palpation in epigastric area Guarding noted Reports upper abdominal pain, epigastric pain, nausea, vomiting, Patient currently denies diarrhea. : No signs and/or symptoms were reported regarding the genitourinary system. EENT: No signs and/or symptoms were reported regarding the EENT system. Derm: No signs and/or symptoms reported regarding the dermatologic system. Skin is intact, is healthy with good turgor, Skin is pink, warm \T\ dry. Musculoskeletal: No signs and/or symptoms reported regarding the musculoskeletal system. Circulation, motion, and sensation intact. Range of motion: intact in all extremities. 12:04 Reassessment: Patient appears in no apparent distress at this time. No changes from kc6 previously documented assessment. Patient and/or family updated on plan of care and expected duration. Pain level reassessed. Patient is alert, oriented x 3, equal unlabored respirations, skin warm/dry/pink. 13:10 Reassessment: Patient appears in no apparent distress at this time. No changes from kc6 previously documented assessment. Patient and/or family updated on plan of care and expected duration. Pain level reassessed. Patient is alert, oriented x 3, equal unlabored respirations, skin warm/dry/pink. Vital Signs: 10:15 BP 130 / 81; Pulse 87; Resp 18; Temp 98; Pulse Ox 100% ; Weight 92.53 kg; Height 5 ft. cm10 9 in. ; Pain 8/10; 13:42 BP 125 / 72; Pulse 85; Resp 17 S; Pulse Ox 99% on R/A; kc6 10:15 Body Mass Index 30.13 (92.53 kg, 175.26 cm) cm10 10:15 Pain Scale: Adult cm10 ED Course: 09:54 Patient arrived in ED. al6 10:00 Raymon Escobar MD is Attending Physician. ec2 10:16 Triage completed. cm10 10:16 Arm band placed on right wrist. Patient placed in an exam room, on a stretcher. EKG cm10 completed in triage. Results shown to MD. 10:16 Patient has correct armband on for positive identification. Bed in low position. Call kc6 light in reach. Side rails up X 1. Adult w/ patient. regulatory analyst on. Pulse ox on. NIBP on. Door closed. Noise minimized. Lights dimmed. Warm blanket given. Pillow given. 10:17 EKG done, by ED staff, reviewed by Raymon Escobar MD. cm10 10:20 Irene Green, RN is Primary Nurse. kc6 10:28 Inserted saline lock: 22 gauge in right forearm, using aseptic technique. Blood ty collected. Flushed with 10 mL NS. 11:06 Patient maintains SpO2 saturation greater than 95% on room air. kc6 12:12 XRAY Chest (1 view) In Process Unspecified. EDMS 13:41 No provider procedures requiring assistance completed. IV discontinued, intact, kc6 bleeding controlled, No redness/swelling at site. Pressure dressing applied. Administered Medications: 10:34 Drug: Droperidol IVP 1.25 mg IVP once Route: IVP; Site: right forearm; kc6 13:10 Follow up: Response: No adverse reaction kc6 10:34 Drug: Ketorolac IVP 15 mg IVP once Route: IVP; Site: right forearm; kc6 13:11 Follow up: Response: No adverse reaction kc6 Medication: 13:42 VIS not applicable for this client. kc6 Outcome: 13:07 Discharge ordered by . ec2 13:42 Discharged to home ambulatory, with friend, kc6 13:42 Condition: improved 13:42 Discharge instructions given to patient, friend, Instructed on discharge instructions, follow up and referral plans. no drinking with medication, no driving heavy equipment, medication usage, Demonstrated understanding of instructions, follow-up care, medications, Prescriptions given X 2, 13:42 Patient left the ED. kc6 Signatures: Dispatcher [employer] Irene Martell RN RN kc6 Holly Niocle RN RN cm10 Raymon Escobar MD MD ec2 James Menchaca Alissa al6
--- NOTE | 2024-11-26 13:08 | EDPHYS ---
Physician Documentation [facility] Name: Felicitas Ann Age: 44 yrs Sex: Female : 1980 Arrival Date: 11/26/2024 Time: 09:50 Bed 6 Private MD: ED Physician Raymon Escobar HPI: 11/26 10:24 This 44 yrs old Female presents to ER via Wheelchair with complaints of Chest ec2 Pain, Breathing Difficulty. 10:24 Patient arrives today for evaluation of URI symptoms, cough, shortness of breath, ec2 feeling unwell. Symptom onset of last night. Also complaining of diarrhea. Reports no urinary complaints. Reports she is having a frequent cough that is causing some chest pain as well. Denies any issues with p.o. intake. No fevers, no vomiting.. Historical: - Allergies: 10:16 PERTUSSIS VACCINES; cm10 - PMHx: 10:16 Diabetes mellitus; Hypothyroidism; cm10 - Immunization history:: Adult Immunizations up to date. - Infectious Disease History:: Denies. - Social history:: Smoking status: unknown. ROS: 10:25 Constitutional: as per hpi ec2 Exam: 10:25 Constitutional: GEN: NAD Head: atraumatic Eyes: EOMI Ears: External ears are ec2 normal. CV: regular rate LUNGS: no respiratory distress, no wheezes or rales or rhonchi ABD: non-distended SKIN: no evidence of rashes MSK: no evidence of trauma Vital Signs: 10:15 BP 130 / 81; Pulse 87; Resp 18; Temp 98; Pulse Ox 100% ; Weight 92.53 kg; Height 5 ft. cm10 9 in. ; Pain 8/10; 13:42 BP 125 / 72; Pulse 85; Resp 17 S; Pulse Ox 99% on R/A; kc6 10:15 Body Mass Index 30.13 (92.53 kg, 175.26 cm) cm10 10:15 Pain Scale: Adult cm10 MDM: 10:07 Medical Screening Exam initiated ec2 10:25 Data reviewed: vital signs, nurses notes. ED course: Patient arrives today for ec2 evaluation of URI symptoms, chest pain, shortness of breath. Examination is revealing for well-appearing nontoxic, dynamically stable with a reassuring cardiopulmonary examination. Will obtain viral swabs, chest x-ray, lab work. Will treat the patient symptoms and reassess. Suspect viral infection.. 10:25 ED course: EKG independently reviewed and interpreted by me, shows normal sinus rhythm, ec2 rate of 87, no acute ST segment elevations, intervals are nonactionable.. 11:02 ED course: Metabolic profile reassuring, CBC reassuring, influenza and COVID testing ec2 negative.. 13:07 ED course: CXR shows no acute intrathoracic testing, labwork unrevealing. will d/c to ec2 home, suspect viral infection. 11/26 10:15 Order name: Basic Metabolic Panel; Complete Time: 11: ec2 11/26 10:15 Order name: CBC with Diff; Complete Time: 11: ec2 11/26 10:15 Order name: Influenza Screen (a \T\ B); Complete Time: 11: ec2 11/26 10:15 Order name: SARS RAPID; Complete Time: 11: ec2 11/26 10:15 Order name: XRAY Chest (1 view); Complete Time: 13: ec2 11/26 10:15 Order name: EKG; Complete Time: 10:15 ec2 11/26 10:15 Order name: Cardiac monitoring; Complete Time: 10:26 ec2 11/26 10:15 Order name: EKG - Nurse/Tech; Complete Time: 10:15 ec2 11/26 10:15 Order name: IV Saline Lock; Complete Time: 10:34 ec2 11/26 10:15 Order name: Labs collected and sent; Complete Time: 10:34 ec2 11/26 10:15 Order name: O2 Per Protocol; Complete Time: 10:20 ec2 11/26 10:15 Order name: O2 Sat Monitoring; Complete Time: 10:20 ec2 Administered Medications: 10:34 Drug: Droperidol IVP 1.25 mg IVP once Route: IVP; Site: right forearm; kc6 13:10 Follow up: Response: No adverse reaction kc6 10:34 Drug: Ketorolac IVP 15 mg IVP once Route: IVP; Site: right forearm; kc6 13:11 Follow up: Response: No adverse reaction kc6 Disposition Summary: 11/26/24 13:07 Discharge Ordered Notes: Location: Home ec2 Condition: Stable ec2 Diagnosis - Viral infection, unspecified ec2 Followup: ec2 - With: Private Physician - When: - Reason: Re-evaluation by your physician Discharge Instructions: - Discharge Summary Sheet ec2 - Viral Illness, Adult ec2 Forms: - Medication Reconciliation Form ec2 - Antibiotic Education ec2 - Prescription Opioid Use ec2 - Patient Portal Instructions ec2 - Leadership Thank You Letter ec2 Prescriptions: - Compazine 10 mg Oral Tablet - take 1 tablet ORAL route every 8 hours As needed; 20 tablet; Refills: 0, ec2 Product Selection Permitted - Tessalon Perles 100 mg Oral Capsule - take 1 capsule ORAL route every 8 hours As needed; 15 capsule; Refills: 0, ec2 Product Selection Permitted Signatures: Dispatcher [employer] Irene Martell RN RN kc6 Holly Nicole RN RN cm10 Raymon Escobar MD MD ec2 Corrections: (The following items were deleted from the chart) 10:15 10:15 BASIC METABOLIC PANEL+C.LAB.BRZ ordered. EDMS EDMS 10:15 10:15 CBC+H.LAB.BRZ ordered. EDMS EDMS
[2024-11-26 14:12] VITALS: TEMP 98
[2024-11-26 14:18] VITALS: BP 125/72; O2SAT 99
--- NOTE | 2024-11-27 11:29 | EKG ---
Test Date: 2024-11-26 Test Time: 10:13:06 [employer] Outseamer: GIL MEASUREMENT RESULTS: Intervals: Rate: 87 GA: 144 QRSD: 80 QT: 372 QTc: 447 [place]: P: 60 GA: 144 QRS: 44 T: 45 INTERPRETIVE STATEMENTS: Normal sinus rhythm Normal ECG No previous ECG available for comparison Electronically Signed On 11-27-24 11:26:32 CLINICAL RESOURCE DIRECTOR by Tolu Centeno
== END 2024-11-26 13:42 | disposition home or self-care (01) ==
LOC: ER 09:50
DX: B34.9 Viral infection, unspecified (principal); R07.9 Chest pain, unspecified; Z11.52 Encounter for screening for COVID-19
CPT/HCPCS: 85025; 80048; 36415; 87804 ×2; 71045; 87811; J1790; 93005